=== PATIENT | female | born 1955 | race Caucasian/White ===

== ENCOUNTER 2018-06-21 10:56 | Emergency (ER) | payer OTHER ==
[~2018-06-21] VITALS: Ht 160 cm; Wt 71.8 kg
[~2018-06-21 10:56] MED LIST: ALBU90OI61 INH; ATOR80 PO; CITA20 PO; Fludrocortison0.1 MG PO; Myfortic360 MG PO; Oxycodone HCl20 M1 PO; PRED5 PO; TACR1 PO; TRAZ100 PO; WARF5 PO; [UNRECOGNIZED DRUG - OTHER] PO
[2018-06-21 11:23] LABS: BASOPHILS ABSOLUTE AUTO 0.01 K/mm3 (0.00-0.23); BASOPHILS PERCENT AUTO 0 % (0-2); EOSINOPHILS ABSOLUTE AUTO 0.03 K/mm3 (0.00-0.68); EOSINOPHILS PERCENT AUTO 1 % (0-6); Hematocrit 41.1 % (33.0-51.0); Hemoglobin 13.3 g/dL (11.5-16.0); IMMATURE GRAN ABSOLUTE AUTO 0.04 K/mm3 (0.00-0.10); IMMATURE GRAN PERCENT AUTO 1 % (0-1); LYMPHOCYTES ABSOLUTE AUTO 0.55 K/mm3 (0.84-5.20); LYMPHOCYTES PERCENT AUTO 9 % (21-46); MONOCYTES PERCENT AUTO 8 % (4-13); Mean Corpuscular HGB 31.4 pg (26.0-34.0); Mean Corpuscular HGB Conc 32.4 g/dL (31.5-36.5); Mean Corpuscular Volume 97 fL (80-100); Mean Platelet Volume 9.3 fL (9.1-12.4); NEUTROPHILS PERCENT AUTO 82 % (41-73); Platelet Count 168 K/mm3 (150-400); RDW Coefficient Variation 14.4 % (11.7-14.2); RDW Standard Deviation 51.8 fL (35.1-46.3); Red Blood Cell Count 4.23 M/mm3 (3.80-5.20); White Blood Cell Count 6.33 K/mm3 (4.00-11.30)
[2018-06-21 11:43] LABS: Alanine Aminotransfer (ALT/SGP 25 U/L (12-78); Albumin, Blood 3.5 g/dL (3.4-5.0); Albumin/Globulin Ratio 1.1 (0.8-1.8); Alk Phos 68 U/L (50-136); Anion Gap 9 mmol/L (6-16); Aspartate Aminotrans (AST/SGOT 30 U/L (12-37); Bilirubin, Total 0.7 mg/dL (0.1-1.0); Blood Urea Nitrogen 20 mg/dL (8-24); Bun/Creatinine Ratio 11.3 (12.0-20.0); CO2, Blood 21 mmol/L (21-32); Calcium, Blood 8.8 mg/dL (8.5-10.1); Chloride, Blood 108 mmol/L (98-108); Creatinine, Blood 1.77 mg/dL (0.40-1.00); Globulin, Blood 3.2 g/dL (2.2-4.0); Glomerular Filtration Rate 31 (60-); Glucose, Blood 130 mg/dL (70-99); Sodium, Blood 138 mmol/L (136-145); Total Protein, Blood 6.7 g/dL (6.4-8.2); Troponin I <0.015 ng/mL (0.000-0.040)
[2018-06-21 11:58] LABS: International Normalized Ratio 1.37; Prothrombin Time Results 13.9 Sec (9.7-11.5)
[2018-06-21] MEDS ORDERED: Zithromax250 MG PO (13:43)
== END 2018-06-21 14:35 | disposition home or self-care (01) ==
LOC: ER 10:56
PROVIDERS: Physician Assistant
DX: J44.1 Chronic obstructive pulmonary disease with (acute) exacerbation (principal); Z88.1 Allergy status to other antibiotic agents; Z79.01 Long term (current) use of anticoagulants; Z79.899 Other long term (current) drug therapy; Z94.0 Kidney transplant status
CPT/HCPCS: 36415; 71046; 80053; 80197; 83605; 83690; 84145; 84484; 85025; 85610; 87040; 93005; 93010; 96365; 99285-25; J0456; J7050

== ENCOUNTER 2019-02-03 07:26 | Day surgery (SDC) | payer MEDICARE ==
[~2019-02-03] VITALS: Ht 160 cm; Wt 74.4 kg
[~2019-02-03 07:26] MED LIST changes: +Zithromax250 MG PO
== END 2019-02-03 09:59 | disposition home or self-care (01) ==
LOC: ORSCSDS 07:26
PROVIDERS: Internal Medicine Gastroenterology
PROC: 0DBE8ZX Excision of Large Intestine, Via Natural or Artificial Opening Endoscopic, Diagnostic (ICD-10-PCS; principal; 2019-02-03 09:00)
DX: K52.9 Noninfective gastroenteritis and colitis, unspecified (principal); K21.9 Gastro-esophageal reflux disease without esophagitis; K64.8 Other hemorrhoids; F32.9 Major depressive disorder, single episode, unspecified; Z79.01 Long term (current) use of anticoagulants; Z79.899 Other long term (current) drug therapy
CPT/HCPCS: 88305; J2704; J7120

== ENCOUNTER 2019-04-07 13:28 | Emergency (ER) | payer MEDICARE ==
[~2019-04-07] VITALS: Ht 160 cm; Wt 74.8 kg
[2019-04-07 14:07] LABS: BASOPHILS ABSOLUTE AUTO 0.01 K/mm3 (0.00-0.23); BASOPHILS PERCENT AUTO 0 % (0-2); EOSINOPHILS ABSOLUTE AUTO 0.03 K/mm3 (0.00-0.68); EOSINOPHILS PERCENT AUTO 1 % (0-6); Hemoglobin 12.3 g/dL (11.5-16.0); IMMATURE GRAN ABSOLUTE AUTO 0.03 K/mm3 (0.00-0.10); IMMATURE GRAN PERCENT AUTO 1 % (0-1); LYMPHOCYTES ABSOLUTE AUTO 0.85 K/mm3 (0.84-5.20); LYMPHOCYTES PERCENT AUTO 15 % (21-46); MONOCYTES ABSOLUTE AUTO 0.25 K/mm3 (0.16-1.47); MONOCYTES PERCENT AUTO 5 % (4-13); Mean Corpuscular HGB 31.9 pg (26.0-34.0); Mean Corpuscular HGB Conc 32.4 g/dL (31.5-36.5); Mean Corpuscular Volume 98 fL (80-100); Mean Platelet Volume 9.2 fL (9.1-12.4); NEUTROPHILS PERCENT AUTO 79 % (41-73); Platelet Count 168 K/mm3 (150-400); RDW Coefficient Variation 13.7 % (11.7-14.2); RDW Standard Deviation 49.5 fL (35.1-46.3); Red Blood Cell Count 3.86 M/mm3 (3.80-5.20); White Blood Cell Count 5.57 K/mm3 (4.00-11.30)
[2019-04-07 14:20] LABS: International Normalized Ratio 1.02; Prothrombin Time Results 10.8 Sec (9.7-11.5)
[2019-04-07 14:30] LABS: Bun/Creatinine Ratio 20.6 (12.0-20.0); Calcium, Blood 8.5 mg/dL (8.5-10.1); Creatinine, Blood 1.7 mg/dL (0.40-1.00); Potassium, Blood 3.5 mmol/L (3.5-5.5)
== END 2019-04-07 15:54 | disposition home or self-care (01) ==
LOC: ER 13:28
PROVIDERS: Physician Assistant
DX: S01.01XA Laceration without foreign body of scalp, initial encounter (principal); Z88.8 Allergy status to other drugs, medicaments and biological substances; Z79.51 Long term (current) use of inhaled steroids; Z79.899 Other long term (current) drug therapy; Z79.01 Long term (current) use of anticoagulants; W18.30XA Fall on same level, unspecified, initial encounter
CPT/HCPCS: 12001; 36415; 70450; 80048; 85025; 85610; 90471; 90714; 99283-25

== ENCOUNTER 2019-04-14 07:19 | Emergency (ER) | payer MEDICARE ==
[~2019-04-14] VITALS: Ht 160 cm; Wt 73.5 kg
== END 2019-04-14 08:23 | disposition home or self-care (01) ==
LOC: ER 07:19
DX: S01.01XD Laceration without foreign body of scalp, subsequent encounter (principal); Z88.1 Allergy status to other antibiotic agents; Z79.52 Long term (current) use of systemic steroids; Z79.01 Long term (current) use of anticoagulants; Z79.899 Other long term (current) drug therapy

== ENCOUNTER 2019-07-16 16:48 | Emergency (ER) | payer MEDICARE ==
[~2019-07-16] VITALS: Ht 160 cm; Wt 75.8 kg
[~2019-07-16 16:48] MED LIST changes: -CEPH500 PO; -HYDR1TAB94 PO; -SERT25 PO
[2019-07-16] MEDS ORDERED: Fludrocortison0.1 MG PO (17:07)
[2019-07-16] MEDS ORDERED: SERT25 PO (17:07)
[2019-07-16] MEDS ORDERED: HYDR1TAB94 PO (18:42)
[2019-07-16] MEDS ORDERED: CEPH500 PO (18:42)
== END 2019-07-16 18:59 | disposition home or self-care (01) ==
LOC: ER 16:48
DX: L03.113 Cellulitis of right upper limb (principal); Z88.1 Allergy status to other antibiotic agents; Z79.899 Other long term (current) drug therapy; Z79.52 Long term (current) use of systemic steroids; Z79.01 Long term (current) use of anticoagulants; Z79.51 Long term (current) use of inhaled steroids
CPT/HCPCS: 99283; A9270-GY

== ENCOUNTER → 2019-07-16 | Outpatient (CLI) | payer MEDICARE ==
[~2019-07-16] MED LIST changes: +CEPH500 PO; +HYDR1TAB94 PO; +SERT25 PO
== END ==
LOC: LAB SHORT 16:44 → LAB EV 16:44
DX: I95.9 Hypotension, unspecified (principal)
CPT/HCPCS: 87040

== ENCOUNTER 2020-05-22 14:48 | Observation (INO) | payer MEDICARE ==
[~2020-05-22] VITALS: Ht 160 cm; Wt 72.6 kg
[~2020-05-22 14:48] MED LIST changes: +ACET325 PO; +CEPH500 PO; +HYDR1TAB94 PO; +MYCOPHENOLIC A PO; +MYCOPHENOLIC A360 MG PO; -Myfortic360 MG PO; +Norco 5-325 Ta1 EACH PO; +SERT25 PO; +WARF6 PO
[2020-05-22 15:18] LABS: BASOPHILS ABSOLUTE AUTO 0.01 K/mm3 (0.00-0.23); BASOPHILS PERCENT AUTO 0 % (0-2); EOSINOPHILS PERCENT AUTO 1 % (0-6); Hematocrit 39.2 % (33.0-51.0); Hemoglobin 12.2 g/dL (11.5-16.0); IMMATURE GRAN ABSOLUTE AUTO 0.02 K/mm3 (0.00-0.10); IMMATURE GRAN PERCENT AUTO 0 % (0-1); LYMPHOCYTES ABSOLUTE AUTO 1.02 K/mm3 (0.84-5.20); LYMPHOCYTES PERCENT AUTO 14 % (21-46); MONOCYTES ABSOLUTE AUTO 0.32 K/mm3 (0.16-1.47); MONOCYTES PERCENT AUTO 4 % (4-13); Mean Corpuscular HGB 29.8 pg (26.0-34.0); Mean Corpuscular HGB Conc 31.1 g/dL (31.5-36.5); Mean Corpuscular Volume 96 fL (80-100); Mean Platelet Volume 9.6 fL (9.1-12.4); NEUTROPHILS ABSOLUTE AUTO 5.85 K/mm3 (1.96-9.15); NEUTROPHILS PERCENT AUTO 80 % (41-73); Platelet Count 273 K/mm3 (150-400); RDW Coefficient Variation 13.3 % (11.7-14.2); RDW Standard Deviation 47.1 fL (35.1-46.3); White Blood Cell Count 7.32 K/mm3 (4.00-11.30)
[2020-05-22 15:47] LABS: Albumin, Blood 3.5 g/dL (3.4-5.0); Albumin/Globulin Ratio 1.1 (0.8-1.8); Bilirubin, Total 0.9 mg/dL (0.1-1.0); Bun/Creatinine Ratio 17.4 (12.0-20.0); Calcium, Blood 8.8 mg/dL (8.5-10.1); Creatinine, Blood 2.87 mg/dL (0.40-1.00); Globulin, Blood 3.2 g/dL (2.2-4.0); Total Protein, Blood 6.7 g/dL (6.4-8.2)
[2020-05-22 15:57] LABS: Source, Urine Clean Catch
[2020-05-22 16:03] LABS: Appearance, Urine Clear (Clear); Bilirubin, Urine Neg (Neg); Blood, Urine 2+ (Neg); Color, Urine Amber (P-Yellow); Glucose Qualitative, Urine Neg (Neg); Ketones, Urine Neg (Neg); Leukocyte Esterase, Urine 2+ (Neg); Nitrite, Urine Neg (Neg); Protein, Urine 2+ (Neg); Urobilinogen, Urine NORM (Normal)
[2020-05-22] MEDS ORDERED: WARF1 PO (16:25)
[2020-05-22] MEDS ORDERED: ZOLOFT50 MG PO (16:26)
[2020-05-22 16:37] LABS: International Normalized Ratio No Calc
[2020-05-22 16:42] LABS: Prothrombin Time Results >90.0 Sec (9.7-11.5)
[2020-05-22] MEDS ORDERED: DAILY-VITE1 EACH PO (16:42)
[2020-05-22] MEDS ORDERED: FERSU300 PO (16:42)
[2020-05-22] MEDS ORDERED: OYSTER SHELL 51 EACH PO (16:42)
[2020-05-22] MEDS ORDERED: MAGNESIUM OXID500 MG PO (16:43)
[2020-05-22 17:09] LABS: Bacteria Mod /hpf; Squamous Epithelial Cells Few /hpf (Few)
[2020-05-22 17:31] LABS: International Normalized Ratio No Calc
[2020-05-22 17:32] LABS: Prothrombin Time Results >90.0 Sec (9.7-11.5)
[2020-05-22 19:04] LABS: Influenza A, PCR Negative (NEGATIVE); Influenza B, PCR Negative (NEGATIVE); Resp Syncytial Virus, PCR Negative (NEGATIVE); SARS-Cov-2 (COVID-19) PCR, MMC Negative (NEGATIVE)
[2020-05-23 04:24] LABS: International Normalized Ratio 3.63
[2020-05-23 04:30] LABS: Albumin, Blood 2.9 g/dL (3.4-5.0); Albumin/Globulin Ratio 1.1 (0.8-1.8); Bilirubin, Total 0.7 mg/dL (0.1-1.0); Bun/Creatinine Ratio 21.4 (12.0-20.0); Calcium, Blood 8.2 mg/dL (8.5-10.1); Creatinine, Blood 2.34 mg/dL (0.40-1.00); Globulin, Blood 2.7 g/dL (2.2-4.0); Potassium, Blood 3.9 mmol/L (3.5-5.5); Total Protein, Blood 5.6 g/dL (6.4-8.2)
[2020-05-23 05:39] LABS: Prothrombin Time Results 36.1 Sec (9.7-11.5)
[2020-05-24 08:10] LABS: HBSAG SCREEN Negative (Negative); HEP A AB, IGM Negative (Negative); HEP B CORE AB, IGM Negative (Negative); HEP C VIRUS AB <0.1 (0.0-0.9)
== END 2020-05-23 13:35 | disposition home or self-care (01) ==
LOC: ER 14:48 → ERHOLD 14:49
PROVIDERS: Emergency Medicine; Physician Assistant; ADMIT Internal Medicine
DX: R79.1 Abnormal coagulation profile (principal); T45.515A Adverse effect of anticoagulants, initial encounter; N17.9 Acute kidney failure, unspecified; I12.9 Hypertensive chronic kidney disease with stage 1 through stage 4 chronic kidney disease, or unspecified chronic kidney disease; N18.4 Chronic kidney disease, stage 4 (severe); B17.9 Acute viral hepatitis, unspecified; F43.29 Adjustment disorder with other symptoms; M48.56XA Collapsed vertebra, not elsewhere classified, lumbar region, initial encounter for fracture; J98.11 Atelectasis; R82.71 Bacteriuria; E78.5 Hyperlipidemia, unspecified; D50.9 Iron deficiency anemia, unspecified; J44.9 Chronic obstructive pulmonary disease, unspecified; K21.9 Gastro-esophageal reflux disease without esophagitis; M19.90 Unspecified osteoarthritis, unspecified site; I25.2 Old myocardial infarction; M25.561 Pain in right knee; F10.20 Alcohol dependence, uncomplicated; E66.9 Obesity, unspecified; Z68.28 Body mass index [BMI] 28.0-28.9, adult; Z79.01 Long term (current) use of anticoagulants; Z79.52 Long term (current) use of systemic steroids; Z88.1 Allergy status to other antibiotic agents; Z79.899 Other long term (current) drug therapy; Z20.828 Contact with and (suspected) exposure to other viral communicable diseases; Z94.0 Kidney transplant status; Z23 Encounter for immunization
CPT/HCPCS: 0241U; 36415; 70450; 73590; 74176; 80053; 80074; 80197; 81001; 83605; 84484; 85025; 85610; 85730; 87040; 87077; 87086; 87186; 96365; 96375; 99285-25; A9270-GY; G0378; G0480; J0696; J3430; J7507; J7512; J7518; Q2038

== ENCOUNTER → 2020-11-22 | Outpatient (CLI) | payer MEDICARE, OTHER ==
[~2020-11-22] MED LIST changes: +DAILY-VITE1 EACH PO; +FERSU300 PO; +MAGNESIUM OXID500 MG PO; +OYSTER SHELL 51 EACH PO; +WARF1 PO; +ZOLOFT50 MG PO
[2020-11-23 14:19] LABS: CORONAVIRUS (COVID19) CSH-NRL Negative (Negative)
== END | disposition home or self-care (01) ==
LOC: LAB SHORT 12:14 → LAB 12:14
PROVIDERS: Family Medicine
DX: Z11.52 Encounter for screening for COVID-19 (principal); Z20.822 Contact with and (suspected) exposure to COVID-19
CPT/HCPCS: U0003

== ENCOUNTER → 2021-04-27 | Outpatient (CLI) | payer MEDICARE, OTHER ==
[2021-04-27 10:12] LABS: BASOPHILS ABSOLUTE AUTO 0.01 K/mm3 (0.00-0.23); BASOPHILS PERCENT AUTO 0 % (0-2); EOSINOPHILS ABSOLUTE AUTO 0.09 K/mm3 (0.00-0.68); EOSINOPHILS PERCENT AUTO 1 % (0-6); Hematocrit 36.9 % (33.0-51.0); Hemoglobin 12.1 g/dL (11.5-16.0); IMMATURE GRAN ABSOLUTE AUTO 0.04 K/mm3 (0.00-0.10); IMMATURE GRAN PERCENT AUTO 1 % (0-1); LYMPHOCYTES ABSOLUTE AUTO 1.36 K/mm3 (0.84-5.20); LYMPHOCYTES PERCENT AUTO 20 % (21-46); MONOCYTES ABSOLUTE AUTO 0.37 K/mm3 (0.16-1.47); MONOCYTES PERCENT AUTO 5 % (4-13); Mean Corpuscular HGB 30.3 pg (26.0-34.0); Mean Corpuscular HGB Conc 32.8 g/dL (31.5-36.5); Mean Corpuscular Volume 92 fL (80-100); Mean Platelet Volume 9.5 fL (9.1-12.4); NEUTROPHILS ABSOLUTE AUTO 4.99 K/mm3 (1.96-9.15); NEUTROPHILS PERCENT AUTO 73 % (41-73); Platelet Count 263 K/mm3 (150-400); RDW Coefficient Variation 13.2 % (11.7-14.2); RDW Standard Deviation 44.8 fL (35.1-46.3); White Blood Cell Count 6.86 K/mm3 (4.00-11.30)
[2021-04-27 10:20] LABS: Albumin, Blood 3.6 g/dL (3.4-5.0); Albumin/Globulin Ratio 1.1 (0.8-1.8); Bilirubin, Total 0.6 mg/dL (0.1-1.0); Bun/Creatinine Ratio 12.8 (12.0-20.0); Calcium, Blood 9.5 mg/dL (8.5-10.1); Creatinine, Blood 2.18 mg/dL (0.40-1.00); Globulin, Blood 3.4 g/dL (2.2-4.0); Potassium, Blood 4.2 mmol/L (3.5-5.5)
[2021-04-27 10:55] LABS: International Normalized Ratio 2.08; Prothrombin Time Results 20.8 Sec (9.7-11.5)
== END | disposition home or self-care (01) ==
LOC: LAB SHORT 10:04
PROVIDERS: General Practice
DX: Z79.01 Long term (current) use of anticoagulants (principal); Z51.81 Encounter for therapeutic drug level monitoring; S40.029A Contusion of unspecified upper arm, initial encounter; R82.90 Unspecified abnormal findings in urine
CPT/HCPCS: 80053; 85025; 85610; 85730; 87086

== ENCOUNTER → 2021-10-11 | Outpatient (CLI) | payer MEDICARE, OTHER ==
[2021-10-11 10:59] LABS: BASOPHILS ABSOLUTE AUTO 0.03 K/mm3 (0.00-0.23); BASOPHILS PERCENT AUTO 0 % (0-2); EOSINOPHILS ABSOLUTE AUTO 0.23 K/mm3 (0.00-0.68); EOSINOPHILS PERCENT AUTO 3 % (0-6); Hematocrit 40.5 % (33.0-51.0); Hemoglobin 13.2 g/dL (11.5-16.0); IMMATURE GRAN ABSOLUTE AUTO 0.03 K/mm3 (0.00-0.10); IMMATURE GRAN PERCENT AUTO 0 % (0-1); LYMPHOCYTES ABSOLUTE AUTO 1.11 K/mm3 (0.84-5.20); LYMPHOCYTES PERCENT AUTO 14 % (21-46); MONOCYTES ABSOLUTE AUTO 0.54 K/mm3 (0.16-1.47); MONOCYTES PERCENT AUTO 7 % (4-13); Mean Corpuscular HGB 30.8 pg (26.0-34.0); Mean Corpuscular HGB Conc 32.6 g/dL (31.5-36.5); Mean Corpuscular Volume 94 fL (80-100); Mean Platelet Volume 9.6 fL (9.1-12.4); NEUTROPHILS ABSOLUTE AUTO 6.12 K/mm3 (1.96-9.15); NEUTROPHILS PERCENT AUTO 76 % (41-73); Platelet Count 330 K/mm3 (150-400); RDW Coefficient Variation 13.2 % (11.7-14.2); RDW Standard Deviation 45.3 fL (35.1-46.3); Red Blood Cell Count 4.29 M/mm3 (3.80-5.20); White Blood Cell Count 8.06 K/mm3 (4.00-11.30)
[2021-10-11 11:07] LABS: Albumin, Blood 3.4 g/dL (3.4-5.0); Albumin/Globulin Ratio 0.9 (0.8-1.8); Bilirubin, Total 0.3 mg/dL (0.1-1.0); Bun/Creatinine Ratio 15.2 (12.0-20.0); Calcium, Blood 9.1 mg/dL (8.5-10.1); Creatinine, Blood 3.35 mg/dL (0.40-1.00); Globulin, Blood 3.9 g/dL (2.2-4.0); Potassium, Blood 5.8 mmol/L (3.5-5.5); Total Protein, Blood 7.3 g/dL (6.4-8.2)
== END | disposition home or self-care (01) ==
LOC: LAB SHORT 10:44
PROVIDERS: General Practice
DX: L08.9 Local infection of the skin and subcutaneous tissue, unspecified (principal)
CPT/HCPCS: 80053; 85025

== ENCOUNTER 2021-10-12 08:16 | Emergency (ER) | payer MEDICARE, OTHER ==
[~2021-10-12] VITALS: Ht 160 cm; Wt 68.0 kg
[2021-10-12 09:46] LABS: BASOPHILS ABSOLUTE AUTO 0.02 K/mm3 (0.00-0.23); BASOPHILS PERCENT AUTO 0 % (0-2); EOSINOPHILS ABSOLUTE AUTO 0.16 K/mm3 (0.00-0.68); EOSINOPHILS PERCENT AUTO 2 % (0-6); Hematocrit 39.4 % (33.0-51.0); Hemoglobin 12.5 g/dL (11.5-16.0); IMMATURE GRAN ABSOLUTE AUTO 0.01 K/mm3 (0.00-0.10); IMMATURE GRAN PERCENT AUTO 0 % (0-1); LYMPHOCYTES ABSOLUTE AUTO 0.82 K/mm3 (0.84-5.20); LYMPHOCYTES PERCENT AUTO 11 % (21-46); MONOCYTES ABSOLUTE AUTO 0.34 K/mm3 (0.16-1.47); MONOCYTES PERCENT AUTO 5 % (4-13); Mean Corpuscular HGB 30.7 pg (26.0-34.0); Mean Corpuscular HGB Conc 31.7 g/dL (31.5-36.5); Mean Corpuscular Volume 97 fL (80-100); Mean Platelet Volume 9.3 fL (9.1-12.4); NEUTROPHILS ABSOLUTE AUTO 6.12 K/mm3 (1.96-9.15); NEUTROPHILS PERCENT AUTO 82 % (41-73); Platelet Count 309 K/mm3 (150-400); RDW Coefficient Variation 12.8 % (11.7-14.2); RDW Standard Deviation 45.8 fL (35.1-46.3); Red Blood Cell Count 4.07 M/mm3 (3.80-5.20); White Blood Cell Count 7.47 K/mm3 (4.00-11.30)
[2021-10-12 10:39] LABS: Prothrombin Time Results 39.1 Sec (9.7-11.5)
[2021-10-12 10:41] LABS: International Normalized Ratio 4.08
[2021-10-12 12:29] LABS: Albumin, Blood 3.3 g/dL (3.4-5.0); Albumin/Globulin Ratio 0.9 (0.8-1.8); Bilirubin, Total 0.3 mg/dL (0.1-1.0); Bun/Creatinine Ratio 20.3 (12.0-20.0); Creatinine, Blood 2.41 mg/dL (0.40-1.00); Globulin, Blood 3.7 g/dL (2.2-4.0); Potassium, Blood 5.4 mmol/L (3.5-5.5)
[2021-10-12 13:17] LABS: Source, Urine Clean Catch
[2021-10-12 13:27] LABS: Appearance, Urine Clear (Clear); Bilirubin, Urine Neg (Neg); Blood, Urine Neg (Neg); Color, Urine Yellow (P-Yellow); Glucose Qualitative, Urine Neg (Neg); Ketones, Urine 2+ (Neg); Leukocyte Esterase, Urine 1+ (Neg); Nitrite, Urine Neg (Neg); Protein, Urine Neg (Neg); Urobilinogen, Urine NORM (Normal)
[2021-10-12 13:55] LABS: Hyaline Casts Rare /lpf (0-2); Red Blood Cells, Urine Rare /hpf (0-2); Squamous Epithelial Cells Few /hpf (Few)
[2021-10-12 13:56] LABS: Bacteria Mod /hpf
== END 2021-10-12 14:39 | disposition home or self-care (01) ==
LOC: ER 08:16
PROVIDERS: Emergency Medicine
DX: N18.9 Chronic kidney disease, unspecified (principal); E78.5 Hyperlipidemia, unspecified; J44.9 Chronic obstructive pulmonary disease, unspecified; I25.2 Old myocardial infarction; Z79.899 Other long term (current) drug therapy; Z79.52 Long term (current) use of systemic steroids; Z94.0 Kidney transplant status; Z88.1 Allergy status to other antibiotic agents; Z79.01 Long term (current) use of anticoagulants
CPT/HCPCS: 36415; 76705; 80053; 81001; 84550; 85025; 85610; 87086; 93005; 93010; J7030

== ENCOUNTER 2022-01-21 15:33 | Emergency (ER) | payer MEDICARE, OTHER ==
[~2022-01-21] VITALS: Ht 160 cm; Wt 72.6 kg
[2022-01-21 16:43] LABS: International Normalized Ratio 2.48; Prothrombin Time Results 24.5 Sec (9.7-11.5)
[2022-01-21] MEDS ORDERED: LIDO700A20 TOP (17:45)
[2022-01-21] MEDS ORDERED: ACET500 PO (17:45)
== END 2022-01-21 18:02 | disposition home or self-care (01) ==
LOC: ER 15:33
PROVIDERS: Student in an Organized Health Care Education/Training Program
DX: S09.90XA Unspecified injury of head, initial encounter (principal); S01.81XA Laceration without foreign body of other part of head, initial encounter; S22.42XA Multiple fractures of ribs, left side, initial encounter for closed fracture; N18.9 Chronic kidney disease, unspecified; J44.9 Chronic obstructive pulmonary disease, unspecified; I25.2 Old myocardial infarction; W10.9XXA Fall (on) (from) unspecified stairs and steps, initial encounter; Z79.01 Long term (current) use of anticoagulants; Z88.1 Allergy status to other antibiotic agents; Z79.52 Long term (current) use of systemic steroids
CPT/HCPCS: 36415; 70450; 71100; 73030; 85610; 85730; A9270

== ENCOUNTER 2022-07-17 07:25 | Emergency (ER) | payer OTHER, MEDICARE ==
[~2022-07-17] VITALS: Ht 160 cm; Wt 64.4 kg
[~2022-07-17 07:25] MED LIST changes: +ACET500 PO; +LIDO700A20 TOP
[2022-07-17] MEDS ORDERED: OXYC5 PO (12:16)
[2022-07-17] MEDS ORDERED: ACET500 PO (12:16)
== END 2022-07-17 12:26 | disposition home or self-care (01) ==
LOC: ER 07:25
DX: S50.12XA Contusion of left forearm, initial encounter (principal); J44.9 Chronic obstructive pulmonary disease, unspecified; I25.2 Old myocardial infarction; W00.0XXA Fall on same level due to ice and snow, initial encounter; Z88.1 Allergy status to other antibiotic agents; Z79.52 Long term (current) use of systemic steroids; Z79.899 Other long term (current) drug therapy; Z79.01 Long term (current) use of anticoagulants; Z51.81 Encounter for therapeutic drug level monitoring
CPT/HCPCS: 36416; 73090; 85610; 99283-25; A9270

== ENCOUNTER → 2023-07-08 | Outpatient (CLI) | payer MEDICARE ==
[~2023-07-08] MED LIST changes: +Amiodarone HCl200 MG PO; +ELIQUIS2.5 MG PO; +FLUDROCORTISON0.1 M1 PO; +JANTOVEN4 M2 PO; +METO50ER PO; +MYCOPHENOLIC A360 M1 PO; +OXYC5 PO; +PROGRAF1 M1 PO; +ROSU5 PO; +TRAZ50 PO
[2023-07-08 13:49] LABS: Source, Urine Clean Catch
[2023-07-08 15:34] LABS: Appearance, Urine Hazy (Clear); Bilirubin, Urine Neg (Neg); Blood, Urine 2+ (Neg); Color, Urine Yellow (P-Yellow); Glucose Qualitative, Urine Neg (Neg); Ketones, Urine Neg (Neg); Leukocyte Esterase, Urine 3+ (Neg); Nitrite, Urine Pos (Neg); Protein, Urine 1+ (Neg); Urobilinogen, Urine NORM (Normal); pH, Urine 6.5 (5.0-8.0)
[2023-07-08 15:49] LABS: White Blood Cells, Urine 25-50 /hpf (0-5)
[2023-07-08 15:50] LABS: Bacteria Many /hpf; Squamous Epithelial Cells Few /hpf (Few); Transitional Epithelial Cells Few /hpf (0-Rare)
[2023-07-08 15:55] LABS: Creatinine, Urine Random 92.2 mg/dL (27.00-270.00); Protein, Urine Random 29.1 mg/dL (0.0-11.9); Protein/Creat Ratio, Ur Random 0.3
== END | disposition home or self-care (01) ==
LOC: LAB SHORT 13:45 → LAB 13:45
PROVIDERS: Hospitalist
DX: Z29.89 Encounter for other specified prophylactic measures (principal); Z94.0 Kidney transplant status
CPT/HCPCS: 81001; 82570; 84156; 87077; 87086; 87186

== ENCOUNTER 2023-07-30 14:48 | Emergency (ER) | payer MEDICARE ==
[~2023-07-30] VITALS: Ht 160 cm; Wt 59.9 kg
[2023-07-30 14:49] VITALS: BP 119/73
== END 2023-07-30 16:34 | disposition home or self-care (01) ==
LOC: ER 14:48
DX: S01.81XA Laceration without foreign body of other part of head, initial encounter (principal); S50.01XA Contusion of right elbow, initial encounter; N18.9 Chronic kidney disease, unspecified; E78.5 Hyperlipidemia, unspecified; D50.9 Iron deficiency anemia, unspecified; I70.0 Atherosclerosis of aorta; J44.9 Chronic obstructive pulmonary disease, unspecified; K21.9 Gastro-esophageal reflux disease without esophagitis; M19.90 Unspecified osteoarthritis, unspecified site; I25.2 Old myocardial infarction; W18.30XA Fall on same level, unspecified, initial encounter; Z79.52 Long term (current) use of systemic steroids; Z79.01 Long term (current) use of anticoagulants; Z79.899 Other long term (current) drug therapy
CPT/HCPCS: 12011; 70450; 99284-25

== ENCOUNTER 2023-08-11 11:23 | Emergency (ER) | payer MEDICARE, OTHER ==
[~2023-08-11] VITALS: Ht 157.5 cm; Wt 59.0 kg
[2023-08-11] MEDS ORDERED: NS 1,000 ML IV SCH (12:25)
[2023-08-11 12:48] LABS: BASOPHILS ABSOLUTE AUTO 0.01 K/mm3 (0.00-0.23); BASOPHILS PERCENT AUTO 0 % (0-2); EOSINOPHILS ABSOLUTE AUTO 0.03 K/mm3 (0.00-0.68); EOSINOPHILS PERCENT AUTO 0 % (0-6); Hematocrit 31.8 % (33.0-51.0); Hemoglobin 9.8 g/dL (11.5-16.0); IMMATURE GRAN ABSOLUTE AUTO 0.04 K/mm3 (0.00-0.10); IMMATURE GRAN PERCENT AUTO 0 % (0-1); LYMPHOCYTES ABSOLUTE AUTO 0.91 K/mm3 (0.84-5.20); LYMPHOCYTES PERCENT AUTO 9 % (21-46); MONOCYTES ABSOLUTE AUTO 0.48 K/mm3 (0.16-1.47); MONOCYTES PERCENT AUTO 5 % (4-13); Mean Corpuscular HGB 28.2 pg (26.0-34.0); Mean Corpuscular HGB Conc 30.8 g/dL (31.5-36.5); Mean Corpuscular Volume 92 fL (80-100); Mean Platelet Volume 9.9 fL (9.1-12.4); NEUTROPHILS PERCENT AUTO 85 % (41-73); Platelet Count 192 K/mm3 (150-400); RDW Coefficient Variation 16.7 % (11.7-14.2); RDW Standard Deviation 56.3 fL (35.1-46.3); Red Blood Cell Count 3.47 M/mm3 (3.80-5.20); White Blood Cell Count 9.97 K/mm3 (4.00-11.30)
[2023-08-11 13:07] LABS: Albumin, Blood 3.6 g/dL (3.4-5.0); Albumin/Globulin Ratio 1.2 (0.8-1.8); Bilirubin, Total 0.4 mg/dL (0.1-1.0); Bun/Creatinine Ratio 15.9 (12.0-20.0); Creatinine, Blood 2.08 mg/dL (0.40-1.00); Potassium, Blood 5.1 mmol/L (3.5-5.5); Total Protein, Blood 6.6 g/dL (6.4-8.2)
[2023-08-11 14:34] VITALS: BP 148/84
== END 2023-08-11 15:23 | disposition home or self-care (01) ==
LOC: ER 11:23
PROVIDERS: Emergency Medicine
DX: R55 Syncope and collapse (principal); Z86.19 Personal history of other infectious and parasitic diseases; Z88.1 Allergy status to other antibiotic agents; Z79.52 Long term (current) use of systemic steroids; Z79.899 Other long term (current) drug therapy
CPT/HCPCS: 71046; 80053; 84484; 85025; J7030

== ENCOUNTER 2023-12-13 11:31 | Emergency (ER) | payer MEDICARE, OTHER ==
[~2023-12-13] VITALS: Ht 160 cm; Wt 59.9 kg
[2023-12-13] MEDS ORDERED: NS 1,000 ML IV SCH (12:10)
[2023-12-13] MEDS ORDERED: Ondansetron HCl 2 MG / ML 2ML Vial IV ONE (12:10)
[2023-12-13 12:20] LABS: BASOPHILS ABSOLUTE AUTO 0.03 K/mm3 (0.00-0.23); BASOPHILS PERCENT AUTO 0 % (0-2); EOSINOPHILS ABSOLUTE AUTO 0.05 K/mm3 (0.00-0.68); EOSINOPHILS PERCENT AUTO 1 % (0-6); Hematocrit 41.4 % (33.0-51.0); Hemoglobin 12.8 g/dL (11.5-16.0); IMMATURE GRAN ABSOLUTE AUTO 0.04 K/mm3 (0.00-0.10); IMMATURE GRAN PERCENT AUTO 0 % (0-1); LYMPHOCYTES ABSOLUTE AUTO 1.84 K/mm3 (0.84-5.20); LYMPHOCYTES PERCENT AUTO 19 % (21-46); MONOCYTES ABSOLUTE AUTO 0.51 K/mm3 (0.16-1.47); MONOCYTES PERCENT AUTO 5 % (4-13); Mean Corpuscular HGB 28.8 pg (26.0-34.0); Mean Corpuscular HGB Conc 30.9 g/dL (31.5-36.5); Mean Corpuscular Volume 93 fL (80-100); Mean Platelet Volume 10.8 fL (9.1-12.4); NEUTROPHILS ABSOLUTE AUTO 7.16 K/mm3 (1.96-9.15); NEUTROPHILS PERCENT AUTO 74 % (41-73); Platelet Count 200 K/mm3 (150-400); RDW Coefficient Variation 14.1 % (11.7-14.2); RDW Standard Deviation 47.5 fL (35.1-46.3); Red Blood Cell Count 4.45 M/mm3 (3.80-5.20); White Blood Cell Count 9.63 K/mm3 (4.00-11.30)
[2023-12-13 12:45] VITALS: BP 122/74
[2023-12-13 12:56] LABS: Albumin, Blood 3.6 g/dL (3.4-5.0); Albumin/Globulin Ratio 1.3 (0.8-1.8); Bilirubin, Total 0.3 mg/dL (0.1-1.0); Bun/Creatinine Ratio 21.1 (12.0-20.0); Calcium, Blood 10.2 mg/dL (8.5-10.1); Creatinine, Blood 2.37 mg/dL (0.40-1.00); Globulin, Blood 2.8 g/dL (2.2-4.0); Potassium, Blood 4.5 mmol/L (3.5-5.5); Total Protein, Blood 6.4 g/dL (6.4-8.2)
== END 2023-12-13 17:36 | disposition home or self-care (01) ==
LOC: ER 11:31
PROVIDERS: Emergency Medicine
DX: R55 Syncope and collapse (principal); R53.1 Weakness; N18.9 Chronic kidney disease, unspecified; Z88.1 Allergy status to other antibiotic agents; Z79.899 Other long term (current) drug therapy; Z79.52 Long term (current) use of systemic steroids; E78.5 Hyperlipidemia, unspecified; J44.9 Chronic obstructive pulmonary disease, unspecified; I25.2 Old myocardial infarction
CPT/HCPCS: 80053; 84484; 85025; 93005; 93010; 96361; 96374; 99284-25; J2405; J7030

== ENCOUNTER → 2024-09-02 | Outpatient (CLI) | payer MEDICARE ==
[2024-09-02 12:46] LABS: BASOPHILS ABSOLUTE AUTO 0.01 K/mm3 (0.00-0.23); BASOPHILS PERCENT AUTO 0 % (0-2); EOSINOPHILS ABSOLUTE AUTO 0.03 K/mm3 (0.00-0.68); EOSINOPHILS PERCENT AUTO 0 % (0-6); Hematocrit 34.8 % (33.0-51.0); Hemoglobin 11.2 g/dL (11.5-16.0); IMMATURE GRAN ABSOLUTE AUTO 0.04 K/mm3 (0.00-0.10); IMMATURE GRAN PERCENT AUTO 0 % (0-1); LYMPHOCYTES PERCENT AUTO 12 % (21-46); MONOCYTES ABSOLUTE AUTO 0.62 K/mm3 (0.16-1.47); MONOCYTES PERCENT AUTO 6 % (4-13); Mean Corpuscular HGB 28.6 pg (26.0-34.0); Mean Corpuscular HGB Conc 32.2 g/dL (31.5-36.5); Mean Corpuscular Volume 89 fL (80-100); Mean Platelet Volume 9.9 fL (9.1-12.4); NEUTROPHILS PERCENT AUTO 82 % (41-73); Platelet Count 184 K/mm3 (150-400); RDW Coefficient Variation 13.6 % (11.7-14.2); RDW Standard Deviation 44.2 fL (35.1-46.3); Red Blood Cell Count 3.91 M/mm3 (3.80-5.20)
[2024-09-02 13:06] LABS: Albumin, Blood 3.6 g/dL (3.4-5.0); Albumin/Globulin Ratio 1.2 (0.8-1.8); Bilirubin, Total 0.6 mg/dL (0.1-1.0); Bun/Creatinine Ratio 18.2 (12.0-20.0); Calcium, Blood 9.3 mg/dL (8.5-10.1); Creatinine, Blood 3.07 mg/dL (0.40-1.00); Potassium, Blood 4.1 mmol/L (3.5-5.5); Total Protein, Blood 6.6 g/dL (6.4-8.2)
== END ==
LOC: LAB 12:38 → LAB SHORT 12:38
PROVIDERS: Chiropractor
DX: R10.31 Right lower quadrant pain (principal)
CPT/HCPCS: 80053; 83690; 85025

== ENCOUNTER 2024-12-18 09:23 | Inpatient (IN) | payer MEDICARE, OTHER ==
[~2024-12-18] VITALS: Ht 137.2 cm; Wt 53.5 kg
[~2024-12-18 09:23] MED LIST changes: +LOPE2C PO; +MYCOPHENOLIC A; -MYCOPHENOLIC A PO
[2024-12-18 09:42] LABS: Calcium, Ionized (POC) 1.32 mmol/L (1.10-1.46); Chloride (POC) 115 mmol/L (98-108); Creatinine (POC) 5.7 mg/dL (0.6-1.0); Glucose (ISTAT POC) 132 mg/dL (70-99); Hematocrit (POC) 36.0 % (36.0-46.0); Hemoglobin (POC) 12.2 g/dL (12.0-16.0); Potassium (POC) 4.4 mmol/L (3.5-5.5); Sodium (POC) 135 mmol/L (135-148); Total CO2 (POC) 10 mmol/L (21-32)
[2024-12-18 09:44] LABS: pH Blood Venous 7.01 (7.34-7.37)
[2024-12-18] MEDS ORDERED: NS 1,000 ML IV SCH (09:45)
[2024-12-18 09:55] LABS: BASOPHILS ABSOLUTE AUTO 0.02 K/mm3 (0.00-0.23); BASOPHILS PERCENT AUTO 0 % (0-2); EOSINOPHILS ABSOLUTE AUTO 0.08 K/mm3 (0.00-0.68); EOSINOPHILS PERCENT AUTO 1 % (0-6); Hematocrit 34.8 % (33.0-51.0); Hemoglobin 11.2 g/dL (11.5-16.0); IMMATURE GRAN ABSOLUTE AUTO 0.07 K/mm3 (0.00-0.10); IMMATURE GRAN PERCENT AUTO 1 % (0-1); LYMPHOCYTES ABSOLUTE AUTO 2.05 K/mm3 (0.84-5.20); LYMPHOCYTES PERCENT AUTO 17 % (21-46); MONOCYTES ABSOLUTE AUTO 0.65 K/mm3 (0.16-1.47); MONOCYTES PERCENT AUTO 5 % (4-13); Mean Corpuscular HGB Conc 32.2 g/dL (31.5-36.5); Mean Corpuscular Volume 92 fL (80-100); NEUTROPHILS ABSOLUTE AUTO 9.12 K/mm3 (1.96-9.15); NEUTROPHILS PERCENT AUTO 76 % (41-73); NRBC ABSOLUTE 0.00 K/mm3 (0.00-0.02); NRBC Auto 0.0 /100 WBC (0.0-0.2); Platelet Count 288 K/mm3 (150-400); RDW Coefficient Variation 14.6 % (11.7-14.2); RDW Standard Deviation 49.4 fL (35.1-46.3)
[2024-12-18 10:07] LABS: Alanine Aminotransfer (ALT/SGP 14.0 U/L (12-78); Albumin, Blood 3.6 g/dL (3.4-5.0); Albumin/Globulin Ratio 1.3 (0.8-1.8); Anion Gap 17.0 mmol/L (3-11); Aspartate Aminotrans (AST/SGOT 10.0 U/L (12-37); Bilirubin, Total 0.3 mg/dL (0.1-1.0); Blood Urea Nitrogen 117.0 mg/dL (8-24); CO2, Blood 10.0 mmol/L (21-32); Calcium, Blood 9.0 mg/dL (8.5-10.1); Chloride, Blood 112.0 mmol/L (98-108); Creatinine, Blood 5.21 mg/dL (0.40-1.00); Globulin, Blood 2.8 g/dL (2.2-4.0); Glucose, Blood 138.0 mg/dL (70-99); Magnesium, Blood 1.7 mg/dL (1.6-2.4); Phosphorus, Blood 7.9 mg/dL (2.5-4.9); Potassium, Blood 4.4 mmol/L (3.5-5.5); Sodium, Blood 135.0 mmol/L (136-145); Total Protein, Blood 6.4 g/dL (6.4-8.2)
[2024-12-18 14:19] VITALS: BP 111/67
[2024-12-18] MEDS ORDERED: Ipratropium/Albuterol SulF 2.5-0.5MG/3 ML Amp INH PRN (14:25)
[2024-12-18 15:51] LABS: Anion Gap 16.0 mmol/L (3-11); Blood Urea Nitrogen 114.0 mg/dL (8-24); CO2, Blood 9.0 mmol/L (21-32); Calcium, Blood 8.2 mg/dL (8.5-10.1); Chloride, Blood 117.0 mmol/L (98-108); Creatinine, Blood 4.94 mg/dL (0.40-1.00); Glucose, Blood 123.0 mg/dL (70-99); Potassium, Blood 4.5 mmol/L (3.5-5.5); Sodium, Blood 137.0 mmol/L (136-145)
--- NOTE | 2024-12-18 16:07 | NUR ---
CRITICAL LAB: CALL PLACED TO ABOUT CRITICAL CO2 OF 9.
[2024-12-18 16:17] VITALS: BP 95/37
[2024-12-18] MEDS ORDERED: Sodium Bicarb 8.4% Inj 150 MEQ in Dextrose 5% 1,000 ML IV SCH (16:25)
[2024-12-18] MEDS ORDERED: Mycophenolate Sodium 180 MG Tablet DR PO SCH (18:00)
[2024-12-18 19:26] VITALS: BP 101/32
[2024-12-18 20:44] LABS: pH Blood Venous 7.13 (7.34-7.37)
--- NOTE | 2024-12-18 20:58 | NUR ---
[facility] LAB RESULTS CALLED INTO HOSPITALIST ROMULO YODER. REPORTS IMPROVING AND REPEAT LABS IN MORNING. WCTM.
[2024-12-18 21:14] LABS: Anion Gap 13.0 mmol/L (3-11); Blood Urea Nitrogen 114.0 mg/dL (8-24); CO2, Blood 12.0 mmol/L (21-32); Calcium, Blood 8.3 mg/dL (8.5-10.1); Chloride, Blood 116.0 mmol/L (98-108); Creatinine, Blood 4.68 mg/dL (0.40-1.00); Glucose, Blood 126.0 mg/dL (70-99); Potassium, Blood 4.1 mmol/L (3.5-5.5); Sodium, Blood 137.0 mmol/L (136-145)
[2024-12-18 23:58] VITALS: BP 99/48
[2024-12-19 04:00] VITALS: BP 105/93
--- NOTE | 2024-12-19 04:07 | NUR ---
SHIFT SUMMARY PATIENT HAD NO ACUTE CHANGES. ALERT ORIENTED AND BEDREST. DENIES CHEST PAIN, SOB, AND N/V. VSS/AFEBRILE. PIVS INTACT. NA BICARB INFUSING @ 125mL/HR. TELE MONITOR NSR 89. CONSENT TO PHOTOGRAPH SIGNED AND IN CHART. PICTURE IN CHART. NIECE IN TO CHECK ON PATIENT AND ASKED A FEW QUESTIONS BEFORE LEAVING. SLEPT MOST OF THE SHIFT. CALL LIGHT IN REACH. BED IN LOWEST POSITION. WILL CONTINUE TO MONITOR UNTIL DAY SHIFT NURSE ASSUMES CARE.
[2024-12-19 04:56] LABS: pH Blood Venous 7.32 (7.34-7.37)
[2024-12-19 04:59] LABS: BASOPHILS ABSOLUTE AUTO 0.01 K/mm3 (0.00-0.23); BASOPHILS PERCENT AUTO 0 % (0-2); EOSINOPHILS ABSOLUTE AUTO 0.07 K/mm3 (0.00-0.68); EOSINOPHILS PERCENT AUTO 1 % (0-6); Hematocrit 25.0 % (33.0-51.0); Hemoglobin 8.0 g/dL (11.5-16.0); IMMATURE GRAN ABSOLUTE AUTO 0.02 K/mm3 (0.00-0.10); IMMATURE GRAN PERCENT AUTO 0 % (0-1); LYMPHOCYTES ABSOLUTE AUTO 0.86 K/mm3 (0.84-5.20); LYMPHOCYTES PERCENT AUTO 16 % (21-46); MONOCYTES ABSOLUTE AUTO 0.47 K/mm3 (0.16-1.47); MONOCYTES PERCENT AUTO 9 % (4-13); Mean Corpuscular HGB Conc 32.0 g/dL (31.5-36.5); Mean Corpuscular Volume 92 fL (80-100); NEUTROPHILS ABSOLUTE AUTO 4.13 K/mm3 (1.96-9.15); NEUTROPHILS PERCENT AUTO 74 % (41-73); NRBC ABSOLUTE 0.00 K/mm3 (0.00-0.02); NRBC Auto 0.0 /100 WBC (0.0-0.2); Platelet Count 179 K/mm3 (150-400); RDW Coefficient Variation 14.4 % (11.7-14.2); RDW Standard Deviation 48.0 fL (35.1-46.3)
[2024-12-19 05:24] LABS: Albumin, Blood 2.8 g/dL (3.4-5.0); Anion Gap 14 mmol/L (3-11); Blood Urea Nitrogen 104 mg/dL (8-24); CO2, Blood 14 mmol/L (21-32); Calcium, Blood 7.7 mg/dL (8.5-10.1); Chloride, Blood 114 mmol/L (98-108); Creatinine, Blood 4.03 mg/dL (0.40-1.00); Glucose, Blood 130 mg/dL (70-99); Phosphorus, Blood 5.3 mg/dL (2.5-4.9); Potassium, Blood 3.3 mmol/L (3.5-5.5); Sodium, Blood 139 mmol/L (136-145)
[2024-12-19 08:39] VITALS: BP 95/41
[2024-12-19] MEDS ORDERED: Multivitamins 1 Tab PO SCH (09:00)
[2024-12-19] MEDS ORDERED: Calcium 500 MG/Vit D 200 Units Tab PO SCH (09:00)
[2024-12-19] MEDS ORDERED: Sodium Bicarb 8.4% Inj 150 MEQ in Dextrose 5% 1,000 ML IV SCH (09:00)
[2024-12-19] MEDS ORDERED: Mycophenolate Sodium 180 MG Tablet DR PO SCH (09:00)
[2024-12-19 11:19] VITALS: BP 129/45
[2024-12-19 13:56] LABS: Campylobacter Sp Not Detected (NOT DETECT); E. Coli O157 Not Detected (NOT DETECT); Enteroaggregative E. coli-EAEC Not Detected (NOT DETECT); Enteropathogenic E. coli-EPEC Detected (NOT DETECT); Enterotoxigenic E. coli-ETEC Not Detected (NOT DETECT); Salmonella Sp Not Detected (NOT DETECT); Shiga Toxin-prod E. coli-STEC Not Detected (NOT DETECT); Shigella/Enteroin E. coli-EIEC Not Detected (NOT DETECT); Vibrio Sp Not Detected (NOT DETECT)
[2024-12-19 15:02] LABS: Anion Gap 12.0 mmol/L (3-11); Blood Urea Nitrogen 99.0 mg/dL (8-24); CO2, Blood 19.0 mmol/L (21-32); Calcium, Blood 8.0 mg/dL (8.5-10.1); Chloride, Blood 110.0 mmol/L (98-108); Creatinine, Blood 3.77 mg/dL (0.40-1.00); Glucose, Blood 187.0 mg/dL (70-99); Potassium, Blood 3.3 mmol/L (3.5-5.5); Sodium, Blood 138.0 mmol/L (136-145)
[2024-12-19 16:19] VITALS: BP 133/65
--- NOTE | 2024-12-19 17:00 | NUR ---
DISCHARGE SUMMARY: A&Ox3. PLEASANT AND COOPERATIVE WITH CARE. PT BEDREST AND BEING REPOSITIONED Q2. PT HAD 3 LOOSE BMS THIS SHIFT. PT WAS TAKEN OUT OF ISOLATION DUE TO NEGATIVE CDIFF. PT ON TELE. BICARB HUNG AT BEDSIDE. CALL LIGHT IN REACH.
[2024-12-19 19:47] VITALS: BP 145/62
[2024-12-20] VITALS (7 sets, daily range): BP systolic 94–194; BP diastolic 55–91
--- NOTE | 2024-12-20 04:29 | NUR ---
SHIFT SUMMARY PATIENT HAD NO ACUTE CHANGES. ALERT ORIENTED AND BEDREST. PIV'S INTACT. LR INFUSED @ 125 mL/HR X ONE BAG. TELE MONITOR NSR 86. DENIES CHEST PAIN, SOB, AND N/V. VSS/AFEBRILE. SLEPT MOST OF THE SHIFT. CALL LIGHT IN REACH. BED IN LOWEST POSITION. WILL CONTINUE TO MONITOR UNTIL DAY SHIFT NURSE ASSUMES CARE.
[2024-12-20 11:01] LABS: Albumin, Blood 2.8 g/dL (3.4-5.0); Anion Gap 9.0 mmol/L (3-11); Blood Urea Nitrogen 83.0 mg/dL (8-24); CO2, Blood 23.0 mmol/L (21-32); Calcium, Blood 7.8 mg/dL (8.5-10.1); Chloride, Blood 115.0 mmol/L (98-108); Creatinine, Blood 2.92 mg/dL (0.40-1.00); Glucose, Blood 108.0 mg/dL (70-99); Phosphorus, Blood 3.2 mg/dL (2.5-4.9); Potassium, Blood 2.8 mmol/L (3.5-5.5); Sodium, Blood 144.0 mmol/L (136-145)
[2024-12-20 11:08] LABS: BASOPHILS ABSOLUTE AUTO 0.01 K/mm3 (0.00-0.23); BASOPHILS PERCENT AUTO 0 % (0-2); EOSINOPHILS ABSOLUTE AUTO 0.09 K/mm3 (0.00-0.68); EOSINOPHILS PERCENT AUTO 1 % (0-6); Hematocrit 24.9 % (33.0-51.0); Hemoglobin 8.4 g/dL (11.5-16.0); IMMATURE GRAN ABSOLUTE AUTO 0.02 K/mm3 (0.00-0.10); IMMATURE GRAN PERCENT AUTO 0 % (0-1); LYMPHOCYTES ABSOLUTE AUTO 1.22 K/mm3 (0.84-5.20); LYMPHOCYTES PERCENT AUTO 15 % (21-46); MONOCYTES ABSOLUTE AUTO 0.74 K/mm3 (0.16-1.47); MONOCYTES PERCENT AUTO 9 % (4-13); Mean Corpuscular HGB Conc 33.7 g/dL (31.5-36.5); Mean Corpuscular Volume 89 fL (80-100); NEUTROPHILS ABSOLUTE AUTO 6.03 K/mm3 (1.96-9.15); NEUTROPHILS PERCENT AUTO 75 % (41-73); NRBC ABSOLUTE 0.00 K/mm3 (0.00-0.02); NRBC Auto 0.0 /100 WBC (0.0-0.2); Platelet Count 175 K/mm3 (150-400); RDW Coefficient Variation 14.5 % (11.7-14.2); RDW Standard Deviation 46.5 fL (35.1-46.3)
[2024-12-20 11:18] LABS: Alanine Aminotransfer (ALT/SGP 10.0 U/L (12-78); Albumin/Globulin Ratio 1.3 (0.8-1.8); Aspartate Aminotrans (AST/SGOT 8.0 U/L (12-37); Bilirubin, Total 0.3 mg/dL (0.1-1.0); Globulin, Blood 2.2 g/dL (2.2-4.0); Total Protein, Blood 5.0 g/dL (6.4-8.2)
--- NOTE | 2024-12-20 18:21 | NUR ---
PATIENT A/OX4, UP WITH FWW AND 1PA. 25% WEIGHT BEARING ON RIGHT, PATIENT DOES WELL WITH THIS. MULTIPLE LOOSE STOOLS THIS SHIFT, STARTED ON LEVAQUIN TO TREAT E.COLI IN STOOL. POOR APPETITE, ON RENAL DIET. INCONTINENT OF BOWEL AND BLADDER, ABLE TO EXPRESS NEEDS. BUTTOCKS RED/EXCORIATED WITH SOME SMALL OPEN AREAS, PICS ON CHART. BARRIER CREAM APPLIED TO BUTTOCKS WITH EACH BRIEF CHANGE AND FOAM DRESSING IN PLACE TO PROTECT. VSS, ON RA. NEEDS ENCOURAGEMENT TO GET UP FOR MEALS.
[2024-12-21 03:51] VITALS: BP 110/76
--- NOTE | 2024-12-21 05:45 | NUR ---
SHIFT SUMMARY A&Ox4, VSS ON RA. NO ACUTE CHANGES OVERNIGHT. CHECK AND CHANGES COMPLETED. PT RESTLESS AT TIMES OVERNIGHT. PT DENIES PAIN, SOB, NAUSEA OR OTHER COMPLAINTS. SAFETY PRECAUTIONS IN PLACE, CALL LIGHT IN REACH.
[2024-12-21 05:50] LABS: BASOPHILS ABSOLUTE AUTO 0.01 K/mm3 (0.00-0.23); BASOPHILS PERCENT AUTO 0 % (0-2); EOSINOPHILS ABSOLUTE AUTO 0.12 K/mm3 (0.00-0.68); EOSINOPHILS PERCENT AUTO 2 % (0-6); Hematocrit 25.2 % (33.0-51.0); Hemoglobin 8.2 g/dL (11.5-16.0); IMMATURE GRAN ABSOLUTE AUTO 0.03 K/mm3 (0.00-0.10); IMMATURE GRAN PERCENT AUTO 0 % (0-1); LYMPHOCYTES ABSOLUTE AUTO 1.50 K/mm3 (0.84-5.20); LYMPHOCYTES PERCENT AUTO 22 % (21-46); MONOCYTES ABSOLUTE AUTO 0.54 K/mm3 (0.16-1.47); MONOCYTES PERCENT AUTO 8 % (4-13); Mean Corpuscular HGB Conc 32.5 g/dL (31.5-36.5); Mean Corpuscular Volume 90 fL (80-100); NEUTROPHILS ABSOLUTE AUTO 4.76 K/mm3 (1.96-9.15); NEUTROPHILS PERCENT AUTO 68 % (41-73); NRBC ABSOLUTE 0.00 K/mm3 (0.00-0.02); NRBC Auto 0.0 /100 WBC (0.0-0.2); Platelet Count 173 K/mm3 (150-400); RDW Coefficient Variation 14.4 % (11.7-14.2); RDW Standard Deviation 46.5 fL (35.1-46.3)
[2024-12-21 06:13] LABS: Albumin, Blood 2.9 g/dL (3.4-5.0); Anion Gap 9 mmol/L (3-11); Blood Urea Nitrogen 78 mg/dL (8-24); CO2, Blood 20 mmol/L (21-32); Calcium, Blood 8.5 mg/dL (8.5-10.1); Chloride, Blood 117 mmol/L (98-108); Creatinine, Blood 2.76 mg/dL (0.40-1.00); Glucose, Blood 98 mg/dL (70-99); Phosphorus, Blood 2.4 mg/dL (2.5-4.9); Potassium, Blood 3.7 mmol/L (3.5-5.5); Sodium, Blood 142 mmol/L (136-145)
[2024-12-21 06:56] VITALS: BP 122/74
[2024-12-21 11:20] VITALS: BP 103/68
[2024-12-21 15:08] VITALS: BP 112/68
--- NOTE | 2024-12-21 17:44 | NUR ---
PATIENT UP TO CHAIR FOR MEALS THEN BACK TO BED TO REST. ALERT AND ORIENTED X4. SISTERS IN ROOM OFF AN ON TODAY. PATIENT COOPERATIVE WITH CARE AND HAS NO CONCERNS AT THIS TIME. CALL LIGHT WITHIN REACH.
[2024-12-21 19:36] VITALS: BP 107/63
[2024-12-22 00:06] VITALS: BP 112/67
[2024-12-22 04:08] VITALS: BP 114/74
--- NOTE | 2024-12-22 06:17 | NUR ---
SHIFT SUMMARY A&Ox4, VSS ON RA. PT DENIES PAIN, SOB, NAUSEA OR OTHER COMPLAINTS. NO ACUTE CHANGES OVERNIGHT. PT DID NOT TRANSFER OUT OF BED THIS SHIFT. LOOSE STOOL X 1. SAFETY PRECAUTIONS IN PLACE, CALL LIGHT IN REACH.
[2024-12-22 07:32] VITALS: BP 119/91
[2024-12-22 11:01] LABS: BASOPHILS ABSOLUTE AUTO 0.02 K/mm3 (0.00-0.23); BASOPHILS PERCENT AUTO 0 % (0-2); EOSINOPHILS ABSOLUTE AUTO 0.22 K/mm3 (0.00-0.68); EOSINOPHILS PERCENT AUTO 3 % (0-6); Hematocrit 27.7 % (33.0-51.0); Hemoglobin 8.9 g/dL (11.5-16.0); IMMATURE GRAN ABSOLUTE AUTO 0.06 K/mm3 (0.00-0.10); IMMATURE GRAN PERCENT AUTO 1 % (0-1); LYMPHOCYTES ABSOLUTE AUTO 1.24 K/mm3 (0.84-5.20); LYMPHOCYTES PERCENT AUTO 14 % (21-46); MONOCYTES ABSOLUTE AUTO 0.55 K/mm3 (0.16-1.47); MONOCYTES PERCENT AUTO 6 % (4-13); Mean Corpuscular HGB Conc 32.1 g/dL (31.5-36.5); Mean Corpuscular Volume 92 fL (80-100); NEUTROPHILS ABSOLUTE AUTO 6.80 K/mm3 (1.96-9.15); NEUTROPHILS PERCENT AUTO 77 % (41-73); NRBC ABSOLUTE 0.00 K/mm3 (0.00-0.02); NRBC Auto 0.0 /100 WBC (0.0-0.2); Platelet Count 165 K/mm3 (150-400); RDW Coefficient Variation 14.6 % (11.7-14.2); RDW Standard Deviation 48.6 fL (35.1-46.3)
[2024-12-22 11:20] LABS: Anion Gap 7.0 mmol/L (3-11); Blood Urea Nitrogen 66.0 mg/dL (8-24); CO2, Blood 22.0 mmol/L (21-32); Calcium, Blood 8.4 mg/dL (8.5-10.1); Chloride, Blood 118.0 mmol/L (98-108); Creatinine, Blood 2.62 mg/dL (0.40-1.00); Glucose, Blood 105.0 mg/dL (70-99); Potassium, Blood 3.9 mmol/L (3.5-5.5); Sodium, Blood 143.0 mmol/L (136-145)
[2024-12-22 15:25] VITALS: BP 111/68
--- NOTE | 2024-12-22 18:18 | NUR ---
PATIENT ALERT AND MORE COOPERATIVE WITH CARE, FEELING BETTER AND ABLE TO AMBULATE TO TOILET AND CHAIR FOR MEALS. POSSIBLE DISCHARGE TOMORROW. CALL LIGHT WITHIN REACH. NO CONCERNS
[2024-12-22 20:29] VITALS: BP 102/78
[2024-12-22 23:48] VITALS: BP 119/77
[2024-12-23 04:16] VITALS: BP 108/76
--- NOTE | 2024-12-23 04:31 | NUR ---
SHIFT SUMMARY 69 YR F ADMITTED ON 12/18/24. DNR, NO ACUTE CHANGES THIS SHIFT. PT HAD NO C/O PAIN OR DISCOMFORT THIS SHIFT. SHE APPEARS TO HAVE RESTED COMFORTABLY THROUGHOUT THE NIGHT. NO NEW CHANGES TO REPORT. BED IN LOW POSITION AND CALL LIGHT IN REACH.
[2024-12-23 08:15] VITALS: BP 104/71
[2024-12-23 11:32] VITALS: BP 109/74
[2024-12-23] MEDS ORDERED: LEVOFLOXACIN250 M1 PO (13:28)
--- NOTE | 2024-12-23 15:15 | NUR ---
PATIENT DISCHARGED HOME WITH HOME HEALTH ORDERS. PATIENT AND FAMILY REVIEWED DISCHARGE PAPERWORK. REVIEWED FOLLOW UP APPOINTMENT, MEDICATION CHANGES AND NO QUESTIONS AT THIS TIME.
== END 2024-12-23 15:22 | disposition home health service (06) | DRG 372 ==
LOC: ER 09:23 → MEDS 12:00
PROVIDERS: Internal Medicine; Nurse Practitioner Acute Care; Student in an Organized Health Care Education/Training Program; ADMIT Student in an Organized Health Care Education/Training Program
DX: A04.4 Other intestinal Escherichia coli infections (principal); D84.9 Immunodeficiency, unspecified; N17.9 Acute kidney failure, unspecified; Z94.0 Kidney transplant status; E87.4 Mixed disorder of acid-base balance; N18.4 Chronic kidney disease, stage 4 (severe); Z66 Do not resuscitate; E86.0 Dehydration; E78.5 Hyperlipidemia, unspecified; D50.9 Iron deficiency anemia, unspecified; J44.9 Chronic obstructive pulmonary disease, unspecified; I48.0 Paroxysmal atrial fibrillation; K21.9 Gastro-esophageal reflux disease without esophagitis; F32.9 Major depressive disorder, single episode, unspecified; D63.1 Anemia in chronic kidney disease; M19.90 Unspecified osteoarthritis, unspecified site; M48.00 Spinal stenosis, site unspecified; G47.00 Insomnia, unspecified; Z96.643 Presence of artificial hip joint, bilateral; F10.90 Alcohol use, unspecified, uncomplicated; E87.6 Hypokalemia; Z90.49 Acquired absence of other specified parts of digestive tract; I25.2 Old myocardial infarction; Z79.52 Long term (current) use of systemic steroids; Z79.51 Long term (current) use of inhaled steroids; Z79.899 Other long term (current) drug therapy; Z88.1 Allergy status to other antibiotic agents; Z79.01 Long term (current) use of anticoagulants; Z79.891 Long term (current) use of opiate analgesic; Z98.890 Other specified postprocedural states; Z87.81 Personal history of (healed) traumatic fracture
CPT/HCPCS: 36415; 80047; 80048; 80053; 80069; 82803; 83605; 83690; 83735; 84100; 84484; 85014; 85025; 87507; 93005; 93010; 94760; 97116; 97162; 97530; 99285-25; A9270; J7030; J7070; J7120; J7507; J7512; J7518

== ENCOUNTER 2025-05-03 09:52 | Inpatient (IN) | payer MEDICARE ==
[~2025-05-03] VITALS: Ht 162.6 cm; Wt 60.7 kg
[2025-05-03] VITALS (9 sets, daily range): BP systolic 99–130; BP diastolic 69–93
[~2025-05-03 09:52] MED LIST changes: +LEVOFLOXACIN250 M1 PO
[2025-05-03] MEDS ORDERED: Albuterol 2.5 MG/3 ML VIAL INH SCH (10:15)
[2025-05-03] MEDS ORDERED: Ipratropium/Albuterol SulF 2.5-0.5MG/3 ML Amp INH ONE (10:15)
[2025-05-03 10:25] LABS: BASOPHILS ABSOLUTE AUTO 0.02 K/mm3 (0.00-0.23); BASOPHILS PERCENT AUTO 0 % (0-2); EOSINOPHILS ABSOLUTE AUTO 0.00 K/mm3 (0.00-0.68); EOSINOPHILS PERCENT AUTO 0 % (0-6); Hematocrit 37.4 % (33.0-51.0); Hemoglobin 12.0 g/dL (11.5-16.0); IMMATURE GRAN ABSOLUTE AUTO 0.08 K/mm3 (0.00-0.10); IMMATURE GRAN PERCENT AUTO 1 % (0-1); LYMPHOCYTES ABSOLUTE AUTO 0.72 K/mm3 (0.84-5.20); LYMPHOCYTES PERCENT AUTO 6 % (21-46); MONOCYTES ABSOLUTE AUTO 0.78 K/mm3 (0.16-1.47); MONOCYTES PERCENT AUTO 6 % (4-13); Mean Corpuscular HGB Conc 32.1 g/dL (31.5-36.5); Mean Corpuscular Volume 93 fL (80-100); NEUTROPHILS ABSOLUTE AUTO 11.12 K/mm3 (1.96-9.15); NEUTROPHILS PERCENT AUTO 87 % (41-73); NRBC ABSOLUTE 0.00 K/mm3 (0.00-0.02); NRBC Auto 0.0 /100 WBC (0.0-0.2); Platelet Count 274 K/mm3 (150-400); RDW Coefficient Variation 13.3 % (11.7-14.2); RDW Standard Deviation 45.4 fL (35.1-46.3)
[2025-05-03 10:42] LABS: Magnesium, Blood 1.8 mg/dL (1.6-2.4)
[2025-05-03 10:43] LABS: Alanine Aminotransfer (ALT/SGP 19.0 U/L (12-78); Albumin, Blood 2.9 g/dL (3.4-5.0); Albumin/Globulin Ratio 0.8 (0.8-1.8); Anion Gap 11.0 mmol/L (3-11); Aspartate Aminotrans (AST/SGOT 17.0 U/L (12-37); Bilirubin, Total 0.7 mg/dL (0.1-1.0); Blood Urea Nitrogen 43.0 mg/dL (8-24); CO2, Blood 20.0 mmol/L (21-32); Calcium, Blood 9.1 mg/dL (8.5-10.1); Chloride, Blood 112.0 mmol/L (98-108); Creatinine, Blood 2.57 mg/dL (0.40-1.00); Globulin, Blood 3.6 g/dL (2.2-4.0); Glucose, Blood 168.0 mg/dL (70-99); Potassium, Blood 5.6 mmol/L (3.5-5.5); Sodium, Blood 137.0 mmol/L (136-145); Total Protein, Blood 6.5 g/dL (6.4-8.2)
[2025-05-03] MEDS ORDERED: CefTRIAXone Sodium 1,000 MG in NS 50 ML IV ONE (10:45)
[2025-05-03] MEDS ORDERED: NS 1,000 ML IV SCH (10:50)
[2025-05-03 11:29] LABS: Influenza A, PCR NEGATIVE (NEGATIVE); Influenza B, PCR NEGATIVE (NEGATIVE); Resp Syncytial Virus, PCR NEGATIVE (NEGATIVE); SARS-Cov-2 (COVID-19) PCR, MMC NEGATIVE (NEGATIVE)
[2025-05-03] MEDS ORDERED: FLU VACC TS2025(65UP)/MF59C/PF 45 MCG/0.5 ML SYRINGE IM SCH (11:40)
[2025-05-03] MEDS ORDERED: NS 500 ML IV SCH (12:50)
[2025-05-03 14:09] LABS: pH Blood Venous 7.08 (7.34-7.37)
--- NOTE | 2025-05-03 15:34 | NUR ---
ARRIVAL TO UNIT PT ARRIVED TO UNIT VIA ED ON A GOURNEY. PT SLID TO BED VIA SLIDE SHEET. PT ABLE TO ASSIST c REPOSITION IN BED. A&O x4, RESPONDS TO QUESTIONS APPROPRIATELY. SPO2 >91% ON 8L O2 VIA OXYMASK. PT DESAT TO 86% WHEN LYING FLAT. PT ENDORSES INCREASED WOB c EXERTION. MAP >65. HR 110-120s. PT DENIES CHEST PAIN/PRESSURE. INCONT VOID UPON ARRIVAL, ATTENDS CHANGED. STAGE 2 ULCER TO COCCYX, PHOTO DOCUMENTATION & MEPILEX PLACED. PT ORIENTED TO UNIT, CALL LIGHT IN REACH.
[2025-05-03] MEDS ORDERED: ALBU8HFA2 INH (15:56)
[2025-05-03] MEDS ORDERED: Ipratropium/Albuterol SulF 2.5-0.5MG/3 ML Amp INH SCH (16:05)
[2025-05-03] MEDS ORDERED: Albuterol 2.5 MG/3 ML VIAL INH PRN (16:05)
[2025-05-03] MEDS ORDERED: Ipratropium/Albuterol SulF 2.5-0.5MG/3 ML Amp ONE (16:06)
[2025-05-03 16:43] LABS: Anion Gap 15.0 mmol/L (3-11); Blood Urea Nitrogen 45.0 mg/dL (8-24); CO2, Blood 13.0 mmol/L (21-32); Calcium, Blood 8.0 mg/dL (8.5-10.1); Chloride, Blood 115.0 mmol/L (98-108); Creatinine, Blood 2.56 mg/dL (0.40-1.00); Glucose, Blood 297.0 mg/dL (70-99); Potassium, Blood 5.2 mmol/L (3.5-5.5); Sodium, Blood 138.0 mmol/L (136-145)
--- NOTE | 2025-05-03 17:04 | NUR ---
MD CONSULT DR. FRANCE NOTIFIED OF PT CONDITION. GLUCOSE 297. MD ORDER CONST CARB DIET c LOW SLIDING SCALE COVERAGE. LACTIC ACID 5.2, MD ORDER REPEAT LACTIC c VGB IN 2 HOURS. SPO2 >95% ON 5L O2 VIA OXYMASK S/P STERIODS/BREATHING TREATMENTS. MD STATE BIPAP USE IF PT WOB INCREASES. MD AWARE OF COCCYX WOUND, ORDERS PER PROTOCOL.
[2025-05-03] MEDS ORDERED: ZINC OXIDE/PETROLATUM, YELLOW 1 APPLIC/71 GM PASTE TOP PRN (17:10)
[2025-05-03] MEDS ORDERED: Piperacillin/Tazobactam Sod 4.5 GM in NS 100 ML IV SCH (18:00)
--- NOTE | 2025-05-03 18:11 | NUR ---
SHIFT SUMMARY S/P ACUTE RESP FAILURE. NO ACUTE CHANGES SINCE ARRIVAL TO UNIT. HR SINUS TACH 100-110s, MAP >65. SPO2 >91% ON 6L O2 VIA NC. TOLERATING PO LIQUIDS, DENIES N/V. ABX INFUSING PER EMAR. ATTENDS IN USE, INCONT VOIDS. NO BM THIS SHIFT. MEPILEX TO COCCYX C/D/I. PT DENIES PAIN. FAMILY AT BEDSIDE. CALL LIGHT IN REACH, BED IN LOWEST POSITION. REPORT TO BE GIVEN TO CLAUS RN.
--- NOTE | 2025-05-03 19:29 | NUR ---
ASSUMPTION OF CARE ASSUMED CARE OF PT APPROX 1900. PT IS A/0 X4, SITTING UP IN BED VISITING WITH FAMILY AT BEDSIDE, HAS HEARING AID IN LEFT EAR. PT IS CURRENTLY ON 5L NC WITH SATS IN THE HIGH 80S-LOW 90S. BP STABLE WITH SYSTOLIC IN THE 130S AND MAP >65. PT IS AFIB ON MONITOR WITH RATE IN THE 110S. PT IS ABLE TO MAKE NEEDS KNOWN, CALL LIGHT WITHIN REACH.
[2025-05-03 19:42] LABS: pH Blood Venous 7.09 (7.34-7.37)
[2025-05-03] MEDS ORDERED: Insulin Regular 100 UNIT/ML 10ML Vial SC SCH (21:00)
[2025-05-03] MEDS ORDERED: Sodium Bicarb 8.4% 1 MEQ/ML 50 ML Vial IV ONE (23:00)
[2025-05-03] MEDS ORDERED: Cefepime HCl 1,000 MG in NS 100 ML IV SCH ×2 (23:32→23:33)
[2025-05-03] MEDS ORDERED: Sodium Bicarb 8.4% Inj 100 MEQ in Sodium Chloride 0.45% 1,000 ML IV SCH (23:40)
[2025-05-04] VITALS (16 sets, daily range): BP systolic 113–209; BP diastolic 61–172
[2025-05-04] MEDS ORDERED: Insulin Glargine-Yfgn 100 Unit/mL 3 ML SYR SC SCH
[2025-05-04] MEDS ORDERED: Insulin Glargine 100 Unit/ML 3 ML SYR SC SCH
[2025-05-04 00:04] LABS: Anion Gap 14.0 mmol/L (3-11); Blood Urea Nitrogen 51.0 mg/dL (8-24); CO2, Blood 15.0 mmol/L (21-32); Calcium, Blood 8.1 mg/dL (8.5-10.1); Chloride, Blood 115.0 mmol/L (98-108); Creatinine, Blood 2.76 mg/dL (0.40-1.00); Glucose, Blood 375.0 mg/dL (70-99); Potassium, Blood 5.3 mmol/L (3.5-5.5); Sodium, Blood 139.0 mmol/L (136-145)
[2025-05-04 04:03] LABS: Anion Gap 13.0 mmol/L (3-11); Blood Urea Nitrogen 51.0 mg/dL (8-24); CO2, Blood 19.0 mmol/L (21-32); Calcium, Blood 8.1 mg/dL (8.5-10.1); Chloride, Blood 114.0 mmol/L (98-108); Creatinine, Blood 2.66 mg/dL (0.40-1.00); Glucose, Blood 306.0 mg/dL (70-99); Potassium, Blood 4.7 mmol/L (3.5-5.5); Sodium, Blood 141.0 mmol/L (136-145)
--- NOTE | 2025-05-04 06:23 | NUR ---
SHIFT SUMMARY PT REMAINS A/O X4, ABLE TO USE CALL LIGHT AND MAKES NEEDS KNOWN. HEART RATE REMAINS SINUS TACH ON MONITOR WITH RATES IN 90S-110, BP STABLE WITH MAP >65, SYSTOLICS IN THE 130S-150S. SATS REMAIN >92% ON 5L NC, DENIES SOB OR INCREASED WOB. PT ABLE TO SLEEP THROUGH MAJORITY OF SEWING DEMONSTRATOR, WAS AWAKE AND USING CALL LIGHT TO VOID ONE TIME OVERNIGHT. DENIES UNMET NEEDS AT THIS TIME, CALL LIGHT WITHIN REACH.
[2025-05-04 06:56] LABS: BASOPHILS ABSOLUTE AUTO 0.01 K/mm3 (0.00-0.23); BASOPHILS PERCENT AUTO 0 % (0-2); EOSINOPHILS ABSOLUTE AUTO 0.00 K/mm3 (0.00-0.68); EOSINOPHILS PERCENT AUTO 0 % (0-6); Hematocrit 30.6 % (33.0-51.0); Hemoglobin 9.8 g/dL (11.5-16.0); IMMATURE GRAN ABSOLUTE AUTO 0.03 K/mm3 (0.00-0.10); IMMATURE GRAN PERCENT AUTO 0 % (0-1); LYMPHOCYTES ABSOLUTE AUTO 0.23 K/mm3 (0.84-5.20); LYMPHOCYTES PERCENT AUTO 3 % (21-46); MONOCYTES ABSOLUTE AUTO 0.13 K/mm3 (0.16-1.47); MONOCYTES PERCENT AUTO 2 % (4-13); Mean Corpuscular HGB Conc 32.0 g/dL (31.5-36.5); Mean Corpuscular Volume 91 fL (80-100); NEUTROPHILS ABSOLUTE AUTO 7.81 K/mm3 (1.96-9.15); NEUTROPHILS PERCENT AUTO 95 % (41-73); NRBC ABSOLUTE 0.00 K/mm3 (0.00-0.02); NRBC Auto 0.0 /100 WBC (0.0-0.2); Platelet Count 158 K/mm3 (150-400); RDW Coefficient Variation 13.4 % (11.7-14.2); RDW Standard Deviation 44.8 fL (35.1-46.3)
[2025-05-04] MEDS ORDERED: Calcium 500 MG/Vit D 200 Units Tab PO SCH (09:00)
[2025-05-04] MEDS ORDERED: Multivitamins 1 Tab PO SCH (09:00)
[2025-05-04 09:31] LABS: Influenza A/2009-H1 Not Detected (NOT DETECT); SARS-Cov-2 (COVID-19), BioFire Not Detected (NOT DETECT)
--- NOTE | 2025-05-04 10:33 | NUR ---
"SPiritual Care | Pt. request Pt. is awake and welcomes my visit. Pt. is pleasant. Faciltate a life review and listen with empathy and a calming presence. Pt. verbalize that she felt with this hospitalization that she was nearing the end. Pt. displayed evidence of strength, awareness, and engagement, and this steamboat captain sought to encourage the Pt. with my observations of those traits. Pt. welcomed prayer. Prayed with the Pt. Pt. verbalized gratitude and requested that this steamboat captain visit again."
[2025-05-04 15:50] LABS: pH Blood Venous 7.32 (7.34-7.37)
[2025-05-04 16:19] LABS: Alanine Aminotransfer (ALT/SGP 23.0 U/L (12-78); Albumin, Blood 2.5 g/dL (3.4-5.0); Albumin/Globulin Ratio 0.8 (0.8-1.8); Anion Gap 12.0 mmol/L (3-11); Aspartate Aminotrans (AST/SGOT 36.0 U/L (12-37); Bilirubin, Total 0.3 mg/dL (0.1-1.0); Blood Urea Nitrogen 55.0 mg/dL (8-24); CO2, Blood 20.0 mmol/L (21-32); Calcium, Blood 8.5 mg/dL (8.5-10.1); Chloride, Blood 116.0 mmol/L (98-108); Creatinine, Blood 2.78 mg/dL (0.40-1.00); Globulin, Blood 3.3 g/dL (2.2-4.0); Glucose, Blood 150.0 mg/dL (70-99); Potassium, Blood 5.1 mmol/L (3.5-5.5); Sodium, Blood 143.0 mmol/L (136-145); Total Protein, Blood 5.8 g/dL (6.4-8.2)
--- NOTE | 2025-05-04 18:08 | NUR ---
SUMMARY PT A/O X4. OOB TO CHAIR THIS EVENING FOR A COUPLE HOURS THEN BACK TO BED. USES FWW, GAITBELT, AND 1 PERSON ASSIST. PT GETS A LITTLE SOB WITH EXERTION AND SPO2 DROPS TO 85% BUT RECOVERS QUICKLY. NO ACUTE CHANGES THIS SHIFT. PT CHANGED TO PCU STATUS. USES CALL LIGHT APPROPRIATELY.
[2025-05-05] VITALS (7 sets, daily range): BP systolic 126–153; BP diastolic 78–99
--- NOTE | 2025-05-05 01:30 | NUR ---
TRANSFER REPORT GIVEN TO NICK YEH. PT TRANSFERRED TO PCU 17 AT 0130.
--- NOTE | 2025-05-05 02:30 | NUR ---
ASSUMPTION OF CARE: PT ARRIVED ON UNIT AT 0135. PT A&OX4 CALM AND COOPERATIVE. ABLE TO MAKE NEEDS KNOWN AND CALLS APPROPRIATELY. PT IS EEK. PT HAS MEPILEX ON COCCYX. 1 PERSON ASSIST TO BSC. BED IS LOW AND LOCKED. CALL LIGHT WITHIN REACH. BED ALARM ON. CONTINUE WITH CURRENT PLAN OF CARE.
[2025-05-05 03:18] LABS: BASOPHILS ABSOLUTE AUTO 0.01 K/mm3 (0.00-0.23); BASOPHILS PERCENT AUTO 0 % (0-2); EOSINOPHILS ABSOLUTE AUTO 0.00 K/mm3 (0.00-0.68); EOSINOPHILS PERCENT AUTO 0 % (0-6); Hematocrit 28.0 % (33.0-51.0); Hemoglobin 9.1 g/dL (11.5-16.0); IMMATURE GRAN ABSOLUTE AUTO 0.05 K/mm3 (0.00-0.10); IMMATURE GRAN PERCENT AUTO 0 % (0-1); LYMPHOCYTES ABSOLUTE AUTO 0.22 K/mm3 (0.84-5.20); LYMPHOCYTES PERCENT AUTO 2 % (21-46); MONOCYTES ABSOLUTE AUTO 0.21 K/mm3 (0.16-1.47); MONOCYTES PERCENT AUTO 2 % (4-13); Mean Corpuscular HGB Conc 32.5 g/dL (31.5-36.5); Mean Corpuscular Volume 89 fL (80-100); NEUTROPHILS ABSOLUTE AUTO 11.05 K/mm3 (1.96-9.15); NEUTROPHILS PERCENT AUTO 96 % (41-73); NRBC ABSOLUTE 0.00 K/mm3 (0.00-0.02); NRBC Auto 0.0 /100 WBC (0.0-0.2); Platelet Count 194 K/mm3 (150-400); RDW Coefficient Variation 13.5 % (11.7-14.2); RDW Standard Deviation 44.0 fL (35.1-46.3)
[2025-05-05 03:41] LABS: Alanine Aminotransfer (ALT/SGP 25.0 U/L (12-78); Albumin, Blood 2.4 g/dL (3.4-5.0); Albumin/Globulin Ratio 0.8 (0.8-1.8); Anion Gap 11.0 mmol/L (3-11); Aspartate Aminotrans (AST/SGOT 49.0 U/L (12-37); Bilirubin, Total 0.2 mg/dL (0.1-1.0); Blood Urea Nitrogen 57.0 mg/dL (8-24); CO2, Blood 21.0 mmol/L (21-32); Calcium, Blood 8.4 mg/dL (8.5-10.1); Chloride, Blood 115.0 mmol/L (98-108); Creatinine, Blood 2.62 mg/dL (0.40-1.00); Globulin, Blood 3.1 g/dL (2.2-4.0); Glucose, Blood 176.0 mg/dL (70-99); Magnesium, Blood 1.7 mg/dL (1.6-2.4); Potassium, Blood 4.9 mmol/L (3.5-5.5); Sodium, Blood 142.0 mmol/L (136-145); Total Protein, Blood 5.5 g/dL (6.4-8.2)
[2025-05-05] MEDS ORDERED: Mag Sulfate 1 GM/D5% 100ML 100 ML IV STA (05:34)
--- NOTE | 2025-05-05 06:03 | NUR ---
SHIFT SUMMARY: PT A&OX4 CALM AND COOPERATIVE. ABLE TO MAKE NEEDS KNOWN AND CALLS APPROPRIATELY. VSS ON 3-4L NC. PT HAD 17 BEAT RUN OF VTACH. RESIDENT NOTIFIED. ORDER MAG DRAW. MA.7 AND RESIDENT ORDERED MAG REPLACEMENT. MEDICATED PER EMAR. PT REPORTS SOB W/EXERTION. 1 PERSON ASSIST TO BSC. BED IS LOW AND LOCKED. CALL LIGHT WITHIN REACH. CONTINUE WITH CURRENT PLAN OF CARE.
--- NOTE | 2025-05-05 11:46 | NUR ---
Spiritual Care Visit. Pt. is awake in bed and welcomes my visit. Pt. is being served lunch and a friend is present. Pt. verbalized onve again that she "feels like she won't survive this hospital visit." Ironically Pt. displays evidence of being alert and has a good appetite. Prayed with the Pt. Pt. verbalized gratitude for the spiritual care visit.
--- NOTE | 2025-05-05 13:27 | NUR ---
PALLIATIVE CONSULT RECEIVED. CURRENTLY NO POLST/AD ON FILE. CONSULT FOR MEDICALLY FRAGILE, PSYCH, RENAL, ADV CARE PLANNING, CULTURAL, END STAGE DISEASE. PT REMAINS A FULL CODE.
--- NOTE | 2025-05-05 17:39 | NUR ---
SHIFT SUMMARY PT A/OX4 AND COOPERATIVE OF CARE. PT ABLE TO EXPRESS NEEDS AND CALLED APPROPIATE. PT INDEPENDENT IN BED AND SBA WHEN UP IN ROOM. PT REPORTED SOB WITH ANY EXERTION, SATS DOWNTO MID 80'S ON 4L NC. O2 TITRATED TO 6L TO ASSIST PT SATS PACK TO 90'S. SHIFT ENDED WITH PT ON 5L NC AND SATS IN THE LOW 90'S. OTHER VSS THROUGHOUT SHIFT. PT UP TO CHAIR FOR ROUGHLY HALF OF SHIFT, TOLERATED WELL.PT FAMILY AT BEDSIDE AND UPDATED ON LABS AND PLAN OF CARE.
[2025-05-06 03:45] VITALS: BP 153/93
[2025-05-06 03:53] LABS: BASOPHILS ABSOLUTE AUTO 0.01 K/mm3 (0.00-0.23); BASOPHILS PERCENT AUTO 0 % (0-2); EOSINOPHILS ABSOLUTE AUTO 0.00 K/mm3 (0.00-0.68); EOSINOPHILS PERCENT AUTO 0 % (0-6); Hematocrit 28.9 % (33.0-51.0); Hemoglobin 9.4 g/dL (11.5-16.0); IMMATURE GRAN ABSOLUTE AUTO 0.12 K/mm3 (0.00-0.10); IMMATURE GRAN PERCENT AUTO 1 % (0-1); LYMPHOCYTES ABSOLUTE AUTO 0.32 K/mm3 (0.84-5.20); LYMPHOCYTES PERCENT AUTO 3 % (21-46); MONOCYTES ABSOLUTE AUTO 0.20 K/mm3 (0.16-1.47); MONOCYTES PERCENT AUTO 2 % (4-13); Mean Corpuscular HGB Conc 32.5 g/dL (31.5-36.5); Mean Corpuscular Volume 90 fL (80-100); NEUTROPHILS ABSOLUTE AUTO 11.18 K/mm3 (1.96-9.15); NEUTROPHILS PERCENT AUTO 95 % (41-73); NRBC ABSOLUTE 0.00 K/mm3 (0.00-0.02); NRBC Auto 0.0 /100 WBC (0.0-0.2); Platelet Count 230 K/mm3 (150-400); RDW Coefficient Variation 13.6 % (11.7-14.2); RDW Standard Deviation 44.6 fL (35.1-46.3)
[2025-05-06 04:13] LABS: Alanine Aminotransfer (ALT/SGP 31.0 U/L (12-78); Albumin, Blood 2.6 g/dL (3.4-5.0); Albumin/Globulin Ratio 0.9 (0.8-1.8); Anion Gap 11.0 mmol/L (3-11); Aspartate Aminotrans (AST/SGOT 48.0 U/L (12-37); Bilirubin, Total 0.3 mg/dL (0.1-1.0); Blood Urea Nitrogen 63.0 mg/dL (8-24); CO2, Blood 21.0 mmol/L (21-32); Calcium, Blood 8.7 mg/dL (8.5-10.1); Chloride, Blood 115.0 mmol/L (98-108); Creatinine, Blood 2.24 mg/dL (0.40-1.00); Globulin, Blood 2.9 g/dL (2.2-4.0); Glucose, Blood 156.0 mg/dL (70-99); Potassium, Blood 4.9 mmol/L (3.5-5.5); Sodium, Blood 142.0 mmol/L (136-145); Total Protein, Blood 5.5 g/dL (6.4-8.2)
--- NOTE | 2025-05-06 06:20 | NUR ---
SHIFT SUMMARY: PT A&OX4 CALM AND COOPERATIVE. ABLE TO MAKE NEEDS KNOWN AND CALLS APPROPRIATELY. VSS ON 3L NC. TITRATED UP NEEDED W/ EXERTION TO BSC. NO OTHER SIGNIFICANT EVENTS T/O THE NIGHT. BED IS LOW AND LOCKED. CALL LIGHT WITHIN REACH. CONTINUE WITH CURRENT PLAN OF CARE.
[2025-05-06 08:44] VITALS: BP 129/90
--- NOTE | 2025-05-06 11:01 | NUR ---
MET WITH PT AND NIECE AT BEDSIDE THIS MORNING TO DISCUSS CODE STATUS AND GOALS OF CARE. THE PATIENT WAS TEARFUL, STATES SHE IS AFRAID TO "GIVE UP," BUT STATES SHE ISN'T AFRAID OF . SHE STATES SHE CAN'T DECIDE BETWEEN SYMPTOM MANAGEMENT VS CONTINUING TREATMENT. PLAN IS TO CONTACT PT'S SISTER SHIRA REQUESTED BY PT AND NIECE TO KEEP SHIRA IN THE LOOP. SISTER SHIRA IS POA, AND PT LIVES WITH NIECE.
[2025-05-06 12:39] VITALS: BP 130/88
[2025-05-06 15:19] VITALS: BP 153/84
--- NOTE | 2025-05-06 16:33 | NUR ---
FAMILY CONFERENCE: PC RN AND BEDSIDE RN MET IN ROOM WITH PATIENT AND SISTER SHIRA ON THE PHONE. THE PATIENT HAS OPTED TO D/C WITH HOSPICE, AND THE PHYSICIAN EXPECTS SHE WILL BE READY BY FRIDAY. THEY HAVE CHOSEN [facility], AND PLAN FOR DISCHARGE THIS FRIDAY.
--- NOTE | 2025-05-06 18:25 | NUR ---
END OF SHIFT SUMMARY PT IS A/O X4, ABLE TO MAKE NEEDS KNOWN AND CAN MOVE EXTREMITIES EQUALLY AND BILATERALLY. PT IS AFEBRILE. CONTINUOUS CARDIAC MONITORING IN PLACE SHOWING SR, MAP >65. HR IN THE 80'S. PT IS ON 3L NC WHILE RESTING AND 6L NC WITH MOVEMENT. PT IS ONE PERSON ASSIST TO THE BATHROOM. L WRIST PIV IS IN PLACE. PALLATIVE CARE MEETING OCCURED AROUND 1500, SEE PALLATIVE CARE NOTES. BED IN LOWEST POSITION, CALL LIGHT IN REACH, WILL REPORT TO ONCOMING SHIFT.
[2025-05-06 20:12] VITALS: BP 155/94
[2025-05-06 23:13] VITALS: BP 148/93
[2025-05-07 04:01] VITALS: BP 149/94
--- NOTE | 2025-05-07 04:35 | NUR ---
ASSUMED CARE OF PT AT 1900. PT AXOX4 AND USES CALL LIGHT APPRORPIATELY. CURRENTLY ON 3LNC TO MAINTAIN O2 > 92%. PT DOES HAVE EXERTIONAL DYSPNEA. UP TO RESTROOM X 1 ASSIST. ALL OTHER VSS. BED IN LOWEST POSITION AND CALL LIGHT WITHIN REACH.
[2025-05-07 06:57] LABS: BASOPHILS ABSOLUTE AUTO 0.03 K/mm3 (0.00-0.23); BASOPHILS PERCENT AUTO 0 % (0-2); EOSINOPHILS ABSOLUTE AUTO 0.00 K/mm3 (0.00-0.68); EOSINOPHILS PERCENT AUTO 0 % (0-6); Hematocrit 30.9 % (33.0-51.0); Hemoglobin 9.8 g/dL (11.5-16.0); IMMATURE GRAN ABSOLUTE AUTO 0.29 K/mm3 (0.00-0.10); IMMATURE GRAN PERCENT AUTO 2 % (0-1); LYMPHOCYTES ABSOLUTE AUTO 0.43 K/mm3 (0.84-5.20); LYMPHOCYTES PERCENT AUTO 3 % (21-46); MONOCYTES ABSOLUTE AUTO 0.34 K/mm3 (0.16-1.47); MONOCYTES PERCENT AUTO 3 % (4-13); Mean Corpuscular HGB Conc 31.7 g/dL (31.5-36.5); Mean Corpuscular Volume 93 fL (80-100); NEUTROPHILS ABSOLUTE AUTO 12.48 K/mm3 (1.96-9.15); NEUTROPHILS PERCENT AUTO 92 % (41-73); NRBC ABSOLUTE 0.00 K/mm3 (0.00-0.02); NRBC Auto 0.0 /100 WBC (0.0-0.2); Platelet Count 262 K/mm3 (150-400); RDW Coefficient Variation 13.6 % (11.7-14.2); RDW Standard Deviation 46.5 fL (35.1-46.3)
[2025-05-07 07:08] LABS: Anion Gap 12.0 mmol/L (3-11); Blood Urea Nitrogen 65.0 mg/dL (8-24); CO2, Blood 20.0 mmol/L (21-32); Calcium, Blood 8.5 mg/dL (8.5-10.1); Chloride, Blood 113.0 mmol/L (98-108); Creatinine, Blood 2.14 mg/dL (0.40-1.00); Glucose, Blood 150.0 mg/dL (70-99); Potassium, Blood 5.2 mmol/L (3.5-5.5); Sodium, Blood 140.0 mmol/L (136-145)
[2025-05-07 09:01] VITALS: BP 134/100
--- NOTE | 2025-05-07 11:40 | NUR ---
UPDATE PT SISTER CALLED FOR UPDATE. SISTER UPDATED FOR PLAN FOR DISCHARGE FRIDAY WITH HOSPICE.
[2025-05-07 11:51] VITALS: BP 158/103
[2025-05-07 15:54] VITALS: BP 159/84
--- NOTE | 2025-05-07 19:23 | NUR ---
SHIFT SUMMARY PT A/OX4 AND COOPERAIVE OF CARE. PT ABLE TO EXPRESS NEEDS AND CALLED APPROPIATE. PT BP'S SLIGHTLY ELEVATED. PT O2 TITRATED FROM 54L NC TO 2L NC WHILE AT REST. PT STILL REPORTS SOB WITH ANY EXERTION. OTHER VSS THROUGHOUT SHIFT. NO REPORT OF CHEST PAIN/PRESSURE. PT INDEPENDENT IN BED AND STANDBY ASSIT WHEN UP. NO ACUTE CHANGES.
[2025-05-07 20:10] VITALS: BP 143/84
--- NOTE | 2025-05-07 22:20 | NUR ---
TRANSFER NOTE. REPORT TO LARISSA ROMERO ON MEDICAL FLOOR. PATIENT BEING TRANSFERRED BY SCRAP DROP OPERATOR VIA BED ON O2 @ 2L/MIN NC. PATIENT ALERT AND IN NO DISTRESS. BELONGINGS WITH PATIENT.
--- NOTE | 2025-05-07 23:39 | NUR ---
05/07/25 3870 PATIENT WAS RECEIVED VIA BED TO ROOM 304. PATIENT IS ALERT AND ORIENTED. ORIENTED TO ROOM AND CALL LIGHT. O2 ON 2 LITERS. LUNGS WITH FINE CRACKLES IN BASES. NO COUGH NOTED. DENIES ANY DISCOMFORT AT THIS TIME. PT HAS FRAGILE SKIN WITH MULTIPLE BRUISING. 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 OKAY TO DO B/P ON EITHER ARM. PT IS READY TO REST, CALL LIGHT IN REACH. BED LOCKED AND IN LOWEST PAOITION.
[2025-05-08 02:44] VITALS: BP 155/102
[2025-05-08 05:13] LABS: BASOPHILS ABSOLUTE AUTO 0.05 K/mm3 (0.00-0.23); BASOPHILS PERCENT AUTO 0 % (0-2); EOSINOPHILS ABSOLUTE AUTO 0.00 K/mm3 (0.00-0.68); EOSINOPHILS PERCENT AUTO 0 % (0-6); Hematocrit 30.9 % (33.0-51.0); Hemoglobin 10.0 g/dL (11.5-16.0); IMMATURE GRAN ABSOLUTE AUTO 0.62 K/mm3 (0.00-0.10); IMMATURE GRAN PERCENT AUTO 4 % (0-1); LYMPHOCYTES ABSOLUTE AUTO 0.51 K/mm3 (0.84-5.20); LYMPHOCYTES PERCENT AUTO 3 % (21-46); MONOCYTES ABSOLUTE AUTO 0.34 K/mm3 (0.16-1.47); MONOCYTES PERCENT AUTO 2 % (4-13); Mean Corpuscular HGB Conc 32.4 g/dL (31.5-36.5); Mean Corpuscular Volume 90 fL (80-100); NEUTROPHILS ABSOLUTE AUTO 13.88 K/mm3 (1.96-9.15); NEUTROPHILS PERCENT AUTO 90 % (41-73); NRBC ABSOLUTE 0.00 K/mm3 (0.00-0.02); NRBC Auto 0.0 /100 WBC (0.0-0.2); Platelet Count 269 K/mm3 (150-400); RDW Coefficient Variation 13.8 % (11.7-14.2); RDW Standard Deviation 45.4 fL (35.1-46.3)
[2025-05-08 05:32] LABS: Anion Gap 11.0 mmol/L (3-11); Blood Urea Nitrogen 60.0 mg/dL (8-24); CO2, Blood 20.0 mmol/L (21-32); Calcium, Blood 8.4 mg/dL (8.5-10.1); Chloride, Blood 113.0 mmol/L (98-108); Creatinine, Blood 2.11 mg/dL (0.40-1.00); Glucose, Blood 154.0 mg/dL (70-99); Potassium, Blood 5.1 mmol/L (3.5-5.5); Sodium, Blood 139.0 mmol/L (136-145)
--- NOTE | 2025-05-08 05:59 | NUR ---
RN shift summary: Pt has remained on 2L O2. Pt has had no respiratory distress. She is very pleasant and cooperative.Pt has been awake since 3 am. Playing games on phone and watching TV. Plan is for PT to return home where she lives with her neice who is a nurse. Call light remains in reach.
[2025-05-08 07:34] VITALS: BP 152/93
[2025-05-08] MEDS ORDERED: NS 250 ML IV PRN (09:05)
--- NOTE | 2025-05-08 10:11 | NUR ---
DR EDILMA OLIVAREZ SPUTUM SAMPLES DC, PATIENT GOING HOME ON HOSPICE FRIDAY
[2025-05-08 19:32] VITALS: BP 134/74
--- NOTE | 2025-05-08 19:33 | NUR ---
PT ALERT AND ORIENTED USES CALL LIGHT APPROPRIATELY FOR ASSISTANCE, CURRENTLY NOW BACK TO BASELINE ROOM AIR. 02 SATS 92% ON ROON AIR-SLIGHT SOB WITH AMBULATION TO RESTROOM. REMINDED PT TO SELF TURN EVERY 2 HOURS, FOAM DRESSING TO COCCYX. PLAN FOR DC HOME TOMMOROW. BED ALARM ON, CALL LIGHT IN REACH.
--- NOTE | 2025-05-09 03:15 | NUR ---
Patient alert and oriented, very hard of hearing, IV antibiotics continued per order, steroids given IV, lungs clear, no wheezing, room air, denies shortness of breath, verbalizes desire to go home tomorrow, fistula to bilateral arms, neither are working, last dialysis she stated was 30 years ago, history of kidney transplant, educated to call for help when needed to get out of bed , stand by assist, verbalized understanding, call lightin reach, bed in low and locked position. turned every 2 hours per staff, will continue to monitor.
[2025-05-09 04:10] VITALS: BP 160/94
[2025-05-09 07:32] VITALS: BP 162/83
[2025-05-09] MEDS ORDERED: INSULANI SC (12:10)
--- NOTE | 2025-05-09 12:41 | NUR ---
PT DISCHARGE HOME WITH HOSPICE CARE. ALERT AND ORIENTED ABLE TO SELF TRANSFER TO . IV DISCONTINUED WITH NO ISSUES. DC INSTRUCTIONS REVIEWED WITH PATIENT AND NIECE AT BEDSIDE, PRESCRIPTION FOR LANTUS AND PO ANTIBIOTIC SENT TO [facility]. OXYGEN DELIVERED TO PATIENT IN ROOM AND TAKEN HOME.
== END 2025-05-09 12:38 | disposition hospice, home (50) | DRG 871 ==
LOC: ER 09:52 → MEDS 11:36 → PCU 11:36 → ICUE 15:25 → PCU 05-05 01:33 → MEDS 05-07 22:31 → ENPENDDIS 05-09 09:14 → MEDS 05-09 12:38
PROVIDERS: Internal Medicine; Student in an Organized Health Care Education/Training Program; ADMIT Internal Medicine
DX: A41.9 Sepsis, unspecified organism (principal); J18.9 Pneumonia, unspecified organism; J96.01 Acute respiratory failure with hypoxia; E87.20 Acidosis, unspecified; N17.9 Acute kidney failure, unspecified; N18.4 Chronic kidney disease, stage 4 (severe); T86.19 Other complication of kidney transplant; J44.1 Chronic obstructive pulmonary disease with (acute) exacerbation; Z66 Do not resuscitate; J44.0 Chronic obstructive pulmonary disease with (acute) lower respiratory infection; I50.32 Chronic diastolic (congestive) heart failure; D84.9 Immunodeficiency, unspecified; R65.20 Severe sepsis without septic shock; I95.9 Hypotension, unspecified; E87.5 Hyperkalemia; I48.0 Paroxysmal atrial fibrillation; F32.A Depression, unspecified; M19.90 Unspecified osteoarthritis, unspecified site; G47.00 Insomnia, unspecified; I08.1 Rheumatic disorders of both mitral and tricuspid valves; R73.9 Hyperglycemia, unspecified; Z96.643 Presence of artificial hip joint, bilateral; Z88.1 Allergy status to other antibiotic agents; Z79.52 Long term (current) use of systemic steroids; Z79.621 Long term (current) use of calcineurin inhibitor; Z79.01 Long term (current) use of anticoagulants; Z79.69 Long term (current) use of other immunomodulators and immunosuppressants; I25.2 Old myocardial infarction
CPT/HCPCS: 0202U; 36415; 71045; 80048; 80053; 82803; 82947; 83605; 83735; 83880; 85025; 87040; 87637; 93005; 93010; 93306; 94640; 94664; 94760; 94762; 96365; 96375; 97110; 97116; 97162; 97165; 97530; 97535; 99285-25; A9270; J0456; J0692; J0696; J1815; J2543; J2919; J3475; J7030; J7050